=== PATIENT | female | born 1955 | race Caucasian/White ===

== ENCOUNTER 2021-09-28 10:51 | Emergency (ER) | payer MEDICARE, OTHER, SELFPAY ==
--- NOTE | 2021-09-28 10:58 | DI.RAD.S_ITS ---
PROCEDURE: XR CHEST 1V INDICATIONS: chest pain TECHNIQUE: One view of the chest was acquired. COMPARISON: None. FINDINGS: Surgical changes and devices: None. Lungs and pleura: Lungs are clear. No pleural effusions or pneumothorax. Mediastinum: Mediastinal contours appear normal. Heart size is normal. Bones and chest wall: No suspicious bony lesions. Overlying soft tissues appear unremarkable. IMPRESSION: No acute cardiopulmonary abnormalities or focal airspace disease. Dictated by: Se Angeles M.D. on 09/28/2021 at 12:04 Approved by: Se Angeles M.D. on 09/28/2021 at 12:04
[2021-09-28 11:07] VITALS: BP 147/79; PULSE 80; RESP 22; TEMP 36.7; O2SAT 96; BMI 22.2
[2021-09-28 11:22] VITALS: PULSE 77; RESP 18; O2SAT 95
[2021-09-28 11:27] LABS: Add Manual Diff / Slide Review NO; Basophils Absolute Auto 100 /uL (0-100); Basophils Percent Auto 0.7 % (0-2); Eosinophils Absolute Auto 200 /uL (0-450); Eosinophils Percent Auto 2.7 % (2-4); Hematocrit 39.5 % (36-46); Hemoglobin 13.7 g/dL (12.0-16.0); Lymphocytes Absolute Auto 2000 /uL (1100-4500); Lymphocytes Percent Auto 21.9 % (25-40); Mean Corpuscular HGB Conc 34.7 % (30-36); Mean Corpuscular Hemoglobin 31.8 PG (26-34); Mean Corpuscular Volume 91.7 fL (80-100); Monocytes Absolute Auto 900 /uL (0-900); Monocytes Percent Auto 9.8 % (3-14); Neutrophils Absolute Auto 6000 /uL (1500-7000); Neutrophils Percent Auto 64.9 % (50-75); Platelet Count 289 X10^3/uL (150-400); Red Blood Cell Count 4.31 X10^6/uL (4.0-5.2); Red Cell Distribution Width 13.7 % (11.6-14.8); White Blood Cell Count 9.2 X10^3/uL (4.5-11.0)
[2021-09-28 11:30] VITALS: PULSE 80; RESP 18; O2SAT 97
[2021-09-28 11:31] VITALS: BP 103/61; PULSE 80; O2SAT 96
[2021-09-28 11:34] LABS: Alanine Aminotransferase 24 IU/L (<35); Albumin 4.4 g/dL (3.5-5.0); Albumin Globulin Ratio 1.3 (1.0-2.8); Alkaline Phosphatase 95 U/L (38-126); Aspartate Aminotransferase 34 IU/L (14-36); BUN Creatinine Ratio 14.1 (6-22); Bilirubin Total 0.5 mg/dL (0.2-1.3); Blood Urea Nitrogen 11 mg/dL (7-17); Calcium 9.3 mg/dL (8.4-10.2); Carbon Dioxide 27 mmol/L (22-32); Chloride 102 mmol/L (98-107); Creatine Kinase 41 U/L (30-135); Estimated Glomerular Filt Rate > 60 mL/min (>60); Globulin 3.4 g/dL (1.7-4.1); Glucose 101 mg/dL (80-110); HEMOLYSIS < 15 (0-50); Lipase 70 U/L (23-300); Sodium 138 mmol/L (137-145); Total Protein 7.8 g/dL (6.3-8.2)
[2021-09-28 11:46] LABS: Troponin I < 0.012 ng/mL (0.01-0.034)
[2021-09-28 12:00] VITALS: BP 111/66; PULSE 80; RESP 16; O2SAT 97
[2021-09-28 12:02] LABS: D Dimer 265 ng/mL (<230)
[2021-09-28 12:14] LABS: NT-proBNP (BNP-Adult 18+) 34 pg/mL (<125)
[2021-09-28 12:30] VITALS: BP 125/69; PULSE 75; RESP 10; O2SAT 97
--- NOTE | 2021-09-28 12:36 | ED_ITS ---
HPI - Chest Pain <Annalisa Garduno PA-C - Last Filed: 09/28/21 12:45> General Chief Complaint: Chest Pain Stated Complaint: Covid+, shortness of breath, dizzy Time Seen by Provider: 09/28/21 11:51 Mode of arrival: Wheelchair History of Present Illness HPI narrative: 66-year-old female with past medical history lupus, hyperlipidemia presents to the ED with 4 days of upper respiratory symptoms. Patient states she tested positive for COVID 4 days ago at home, following which she has experienced headache, sore throat, cough, nasal congestion, chest tightness, nausea, lightheadedness. Patient describes her chest tightness as she feels a brick sitting on her chest. Patient denies chills, shortness of breath, vomiting, diarrhea, abdominal pain, leg swelling, dizziness, syncope. Patient is vaccinated and boosted for COVID-19. Related Data Previous Rx's Medication Instructions Recorded benzonatate 200 mg capsule 200 mg PO TID PRN cough #30 caps 09/28/21 Allergies Allergy/AdvReac Type Severity Reaction Status Date / Time No Known Drug Allergies Allergy Unverified 09/28/21 11:10 Review of Systems <Annalisa Garduno PA-C - Last Filed: 09/28/21 12:45> Review of Systems ROS Unobtainable: All systems reviewed & are unremarkable except as noted in HPI and below Constitutional Constitutional: Denies chills, Reports fatigue, Reports fever(s), Denies frequent falls, Reports headache(s), Denies lethargy and Denies weakness Eyes Eyes: Denies change in vision, Denies eye discharge, Denies irritation and Denies loss of vision ENT Ears, Nose, Mouth, and Throat: Denies change in voice, Denies dizziness, Reports headache(s), Reports nasal congestion, Denies neck pain, Denies sore throat and Denies throat swelling Cardiovascular Cardiovascular: Denies chest pain, Denies irregular heart rhythm, Reports lightheadedness, Denies palpitations, Denies dyspnea, Denies dyspnea on exertion and Denies orthopnea Comments: Chest tightness Respiratory Respiratory: Reports cough, Denies dyspnea, Denies dyspnea on exertion and Denies wheezing Gastrointestinal Gastrointestinal: Denies abdominal pain, Denies change in bowel habits, Denies diarrhea, Reports nausea and Denies vomiting Genitourinary Genitourinary: Denies hematuria, Denies flank pain, Denies urinary incontinence and Denies urinary urgency Musculoskeletal Musculoskeletal: Denies back pain, Denies muscle weakness, Denies neck pain, Den ies numbness and Denies tingling Integumentary/Breasts Skin/Breast: Denies pruritus, Denies erythema, Denies rash and Denies wounds Neurologic Neurologic: Denies behavioral changes, Denies confusion, Denies dizziness, Denies frequent falls, Reports headache(s), Denies loss of vision, Denies numbness, Denies tingling and Denies weakness Psychiatric Psychiatric: Denies anxiety, Denies behavioral changes, Denies confusion, Denies depression, Denies homicidal ideation and Denies suicidal ideation Endocrine Endocrine: Reports fatigue, Denies flushing and Denies palpitations Hematologic/Lymphatic Hematologic/Lymphatic: Denies easy bruising Allergic/Immunologic Allergic/Immunologic: Denies urticaria, Denies throat swelling and Denies wheezing Patient History <Annalisa Garduno PA-C - Last Filed: 09/28/21 12:45> Social History Smoking Status: Never smoker Smoking Status: Never smoker Substance Use Type: does not use Exam <Annalisa Garduno PA-C - Last Filed: 09/28/21 12:45> Narrative Exam Narrative: Const General:?cooperative, healthy appearing and comfortable [facility] Head:?normal to inspection Ears:?hearing grossly normal bilaterally Nose:?external nose normal Face and sinus:?normal facial exam and sinuses nontender Mouth:?oral mucosae normal Throat:?posterior oropharynx normal Eyes General:?appearance normal, both eyes and all related structures Neck Neck:?normal visual inspection and no lymphadenopathy noted Resp Effort & Inspection:?normal respiratory effort Auscultation:?clear to auscultation bilaterally Cardio Rate:?regular rate Rhythm:?regular rhythm Neuro General:?patient alert, patient awake and patient oriented x3 Initial Vital Signs Initial Vital Signs: Vital Signs Temperature 98.1 F 09/28/21 11:07 Pulse Rate 80 09/28/21 11:07 Respiratory Rate 22 09/28/21 11:07 Blood Pressure 147/79 H 09/28/21 11:07 Pulse Oximetry 96 09/28/21 11:07 Oxygen Delivery Method 09/28/21 11:07 <DO Mikael Jacobsen Last Filed: 09/30/21 09:31> Initial Vital Signs Initial Vital Signs: Vital Signs Temperature 98.1 F 09/28/21 11:07 Pulse Rate 80 09/28/21 11:07 Respiratory Rate 22 09/28/21 11:07 Blood Pressure 147/79 H 09/28/21 11:07 Pulse Oximetry 96 09/28/21 11:07 Oxygen Delivery Method 09/28/21 11:07 Course <Annalisa Garduno PA-C - Last Filed: 09/28/21 12:45> Orders Ordered: ED Orders 09/28/21 10:58 XR chest 1V Stat EKG-12 Lead Stat 09/28/21 11:10 BNP [NT-proBNP (BNP-Adult 18+)] Stat Complete Blood Count AUTO DIFF Stat Comprehensive Metabolic Panel Stat D Dimer Stat Lipase Stat Magnesium Stat Troponin & CK Cardiac Panel Stat Vital Signs Vital signs: Vital Signs - 8 hr 09/28/21 11:07 09/28/21 11:22 09/28/21 11:30 Temperature 98.1 F Pulse Rate 80 77 80 Respiratory Rate 22 18 18 Blood Pressure 147/79 H Pulse Oximetry 96 95 97 Oxygen Delivery Method Room Air 09/28/21 11:31 09/28/21 11:31 09/28/21 12:00 Temperature Pulse Rate 80 80 Respiratory Rate 16 Blood Pressure 103/61 111/66 Pulse Oximetry 96 97 Oxygen Delivery Method Room Air 09/28/21 12:30 09/28/21 12:30 Temperature Pulse Rate 75 Respiratory Rate 10 L Blood Pressure 125/69 Pulse Oximetry 97 Oxygen Delivery Method <Mirtha Connell DO - Last Filed: 09/30/21 09:31> Orders Ordered: ED Orders 09/28/21 10:58 XR chest 1V Stat EKG-12 Lead Stat 09/28/21 11:10 BNP [NT-proBNP (BNP-Adult 18+)] Stat Complete Blood Count AUTO DIFF Stat Comprehensive Metabolic Panel Stat D Dimer Stat Lipase Stat Magnesium Stat Troponin & CK Cardiac Panel Stat Vital Signs Vital signs: Vital Signs - 8 hr 09/28/21 11:07 09/28/21 11:22 09/28/21 11:30 Temperature 98.1 F Pulse Rate 80 77 80 Respiratory Rate 22 18 18 Blood Pressure 147/79 H Pulse Oximetry 96 95 97 Oxygen Delivery Method Room Air 09/28/21 11:31 09/28/21 11:31 09/28/21 12:00 Temperature Pulse Rate 80 80 Respiratory Rate 16 Blood Pressure 103/61 111/66 Pulse Oximetry 96 97 Oxygen Delivery Method Room Air 09/28/21 12:30 09/28/21 12:30 Temperature Pulse Rate 75 Respiratory Rate 10 L Blood Pressure 125/69 Pulse Oximetry 97 Oxygen Delivery Method MDM - Chest Pain <Annalisa Garduno PA-C - Last Filed: 09/28/21 12:45> Medical Records Data Attestation: I reviewed the patient's medical records. Lab Data Attestation: I reviewed the patient's lab results. Lab results narrative: Labs within normal limits. D-dimer below H adjusted D-dimer card of of 335 Result diagrams: 09/28/21 11:10 09/28/21 11:10 Labs: Lab Results 09/28/21 09/28/21 09/28/21 Range/Units 11:10 11:10 11:10 WBC 9.2 (4.5-11.0) X10^3/uL RBC 4.31 (4.0-5.2) X10^6/uL Hgb 13.7 (12.0-16.0) g/dL Hct 39.5 (36-46) % MCV 91.7 (80-100) fL MCH 31.8 (26-34) PG MCHC 34.7 (30-36) % RDW 13.7 (11.6-14.8) % Plt Count 289 (150-400) X10^3/uL Neut % (Auto) 64.9 (50-75) % Lymph % (Auto) 21.9 L (25-40) % [place] % (Auto) 9.8 (3-14) % Eos % (Auto) 2.7 (2-4) % Baso % (Auto) 0.7 (0-2) % Neut # (Auto) 6000 (2580-7444) /uL Lymph # (Auto) 2000 (3195-0076) /uL [place] # (Auto) 900 (0-900) /uL Eos # (Auto) 200 (0-450) /uL Baso # (Auto) 100 (0-100) /uL D-Dimer 265 H (<230) ng/mL Sodium 138 (137-145) mmol/L Potassium 4.0 (3.4-5.1) mmol/L Chloride 102 (98-107) mmol/L Carbon Dioxide 27 (22-32) mmol/L BUN 11 (7-17) mg/dL Creatinine 0.78 (0.52-1.04) mg/dL Estimated GFR > 60 (>60) mL/min BUN/Creatinine Ratio 14.1 (6-22) Glucose 101 (80-110) mg/dL Calcium 9.3 (8.4-10.2) mg/dL Magnesium 2.0 (1.6-2.3) mg/dL Total Bilirubin 0.5 (0.2-1.3) mg/dL AST 34 (14-36) IU/L ALT 24 (<35) IU/L Alkaline Phosphatase 95 (38-126) U/L Total Creatine Kinase 41 (30-135) U/L CK-MB (CK-2) TNP CK-MB (CK-2) Rel Index TNP Troponin I < 0.012 (0.01-0.034) ng/mL NT-Pro-B Natriuret Pep (<125) pg/mL Total Protein 7.8 (6.3-8.2) g/dL Albumin 4.4 (3.5-5.0) g/dL Globulin 3.4 (1.7-4.1) g/dL Albumin/Globulin Ratio 1.3 (1.0-2.8) Lipase 70 (23-300) U/L // Range/Units 11:10 WBC (4.5-11.0) X10^3/uL RBC (4.0-5.2) X10^6/uL Hgb (12.0-16.0) g/dL Hct (36-46) % MCV (80-100) fL MCH (26-34) PG MCHC (30-36) % RDW (11.6-14.8) % Plt Count (150-400) X10^3/uL Neut % (Auto) (50-75) % Lymph % (Auto) (25-40) % [place] % (Auto) (3-14) % Eos % (Auto) (2-4) % Baso % (Auto) (0-2) % Neut # (Auto) (4298-6956) /uL Lymph # (Auto) (4878-4123) /uL [place] # (Auto) (0-900) /uL Eos # (Auto) (0-450) /uL Baso # (Auto) (0-100) /uL D-Dimer (<230) ng/mL Sodium (137-145) mmol/L Potassium (3.4-5.1) mmol/L Chloride (98-107) mmol/L Carbon Dioxide (22-32) mmol/L BUN (7-17) mg/dL Creatinine (0.52-1.04) mg/dL Estimated GFR (>60) mL/min BUN/Creatinine Ratio (6-22) Glucose (80-110) mg/dL Calcium (8.4-10.2) mg/dL Magnesium (1.6-2.3) mg/dL Total Bilirubin (0.2-1.3) mg/dL AST (14-36) IU/L ALT (<35) IU/L Alkaline Phosphatase (38-126) U/L Total Creatine Kinase (30-135) U/L CK-MB (CK-2) CK-MB (CK-2) Rel Index Troponin I (0.01-0.034) ng/mL NT-Pro-B Natriuret Pep 34 (<125) pg/mL Total Protein (6.3-8.2) g/dL Albumin (3.5-5.0) g/dL Globulin (1.7-4.1) g/dL Albumin/Globulin Ratio (1.0-2.8) Lipase (23-300) U/L Imaging Data Chest x-ray: Radiologist's Impression: PROCEDURE:? XR CHEST 1V ? INDICATIONS:? chest pain ? TECHNIQUE:? One view of the chest was acquired.? ? COMPARISON:? None. ? FINDINGS:? ? Surgical changes and devices:? None.? ? Lungs and pleura:? Lungs are clear.? No pleural effusions or pneumothorax.? ? Mediastinum:? Mediastinal contours appear normal.? Heart size is normal.? ? Bones and chest wall:? No suspicious bony lesions.? Overlying soft tissues appear unremarkable.? ? IMPRESSION:? No acute cardiopulmonary abnormalities or focal airspace disease. ? Dictated by: Se Angeles M.D. on 09/28/2021 at 12:04 ? ? Approved by: Se Angeles M.D. on 09/28/2021 at 12:04 ? ECG Data Interpretation: Normal sinus rhythm. No acute ST-T changes. No axis deviation. MDM Narrative Medical decision making narrative: 66-year-old female with past medical history lupus, hyperlipidemia presents to the ED with 4 days of upper respiratory symptoms. Concern for COVID-19 infection versus ACS versus PE versus acute CHF exacerbation versus pneumonia. Will obtain EKG, chest x-ray, labs, troponin, BNP, D-dimer. Unremarkable workup. D-dimer below threshold for age adjusted value of 335. Patient's symptoms likely due to the COVID-19 infection. Discussed support measures with ibuprofen/Tylenol, Sudafed, cough medication. Prescribed Tessalon Perles for cough. Counseled patient on Paxlovid, patient declined the antiviral. ED return precautions discussed with patient. Patient verbalized understanding. <Mirtha Connell, DO - Last Filed: 09/30/21 09:31> Lab Data Labs: Lab Results 09/28/21 09/28/21 09/28/21 Range/Units 11:10 11:10 11:10 WBC 9.2 (4.5-11.0) X10^3/uL RBC 4.31 (4.0-5.2) X10^6/uL Hgb 13.7 (12.0-16.0) g/dL Hct 39.5 (36-46) % MCV 91.7 (80-100) fL MCH 31.8 (26-34) PG MCHC 34.7 (30-36) % RDW 13.7 (11.6-14.8) % Plt Count 289 (150-400) X10^3/uL Neut % (Auto) 64.9 (50-75) % Lymph % (Auto) 21.9 L (25-40) % [place] % (Auto) 9.8 (3-14) % Eos % (Auto) 2.7 (2-4) % Baso % (Auto) 0.7 (0-2) % Neut # (Auto) 6000 (2756-4320) /uL Lymph # (Auto) 2000 (6046-5770) /uL [place] # (Auto) 900 (0-900) /uL Eos # (Auto) 200 (0-450) /uL Baso # (Auto) 100 (0-100) /uL D-Dimer 265 H (<230) ng/mL Sodium 138 (137-145) mmol/L Potassium 4.0 (3.4-5.1) mmol/L Chloride 102 (98-107) mmol/L Carbon Dioxide 27 (22-32) mmol/L BUN 11 (7-17) mg/dL Creatinine 0.78 (0.52-1.04) mg/dL Estimated GFR > 60 (>60) mL/min BUN/Creatinine Ratio 14.1 (6-22) Glucose 101 (80-110) mg/dL Calcium 9.3 (8.4-10.2) mg/dL Magnesium 2.0 (1.6-2.3) mg/dL Total Bilirubin 0.5 (0.2-1.3) mg/dL AST 34 (14-36) IU/L ALT 24 (<35) IU/L Alkaline Phosphatase 95 (38-126) U/L Total Creatine Kinase 41 (30-135) U/L CK-MB (CK-2) TNP CK-MB (CK-2) Rel Index TNP Troponin I < 0.012 (0.01-0.034) ng/mL NT-Pro-B Natriuret Pep (<125) pg/mL Total Protein 7.8 (6.3-8.2) g/dL Albumin 4.4 (3.5-5.0) g/dL Globulin 3.4 (1.7-4.1) g/dL Albumin/Globulin Ratio 1.3 (1.0-2.8) Lipase 70 (23-300) U/L 09/28/21 Range/Units 11:10 WBC (4.5-11.0) X10^3/uL RBC (4.0-5.2) X10^6/uL Hgb (12.0-16.0) g/dL Hct (36-46) % MCV (80-100) fL MCH (26-34) PG MCHC (30-36) % RDW (11.6-14.8) % Plt Count (150-400) X10^3/uL Neut % (Auto) (50-75) % Lymph % (Auto) (25-40) % [place] % (Auto) (3-14) % Eos % (Auto) (2-4) % Baso % (Auto) (0-2) % Neut # (Auto) (5060-8581) /uL Lymph # (Auto) (5580-2634) /uL [place] # (Auto) (0-900) /uL Eos # (Auto) (0-450) /uL Baso # (Auto) (0-100) /uL D-Dimer (<230) ng/mL Sodium (137-145) mmol/L Potassium (3.4-5.1) mmol/L Chloride (98-107) mmol/L Carbon Dioxide (22-32) mmol/L BUN (7-17) mg/dL Creatinine (0.52-1.04) mg/dL Estimated GFR (>60) mL/min BUN/Creatinine Ratio (6-22) Glucose (80-110) mg/dL Calcium (8.4-10.2) mg/dL Magnesium (1.6-2.3) mg/dL Total Bilirubin (0.2-1.3) mg/dL AST (14-36) IU/L ALT (<35) IU/L Alkaline Phosphatase (38-126) U/L Total Creatine Kinase (30-135) U/L CK-MB (CK-2) CK-MB (CK-2) Rel Index Troponin I (0.01-0.034) ng/mL NT-Pro-B Natriuret Pep 34 (<125) pg/mL Total Protein (6.3-8.2) g/dL Albumin (3.5-5.0) g/dL Globulin (1.7-4.1) g/dL Albumin/Globulin Ratio (1.0-2.8) Lipase (23-300) U/L ECG Data Interpretation: Normal sinus rhythm. No acute ST-T changes. No axis deviation. BOTNICK-sinus rhythm rate 77 VT 146 QRS 82 QTC 416 no changes Q-wave nonpathologic noted in lead 3 and 2 no priors to compare Discharge Plan Departure Patient Disposition: Home Clinical Impression: COVID-19 Instructions: DI for COVID-19 (Suspected or Confirmed ) Activity Restrictions/Additional Instructions: You were evaluated in the ED today for upper respiratory symptoms, chest tightness, recent COVID 19 positive test at home. Your chest x-ray, EKG, labs were normal. The symptoms you are experiencing are consistent with a COVID-19 infection, and can last for several days while it runs its course. You have been prescribed Tessalon Perles for your cough. You may take ibuprofen/Tylenol for aches and pains. You may take Sudafed for nasal congestion. Return to the ED if you experience shortness of breath, chest pain. Prescriptions: New benzonatate 200 mg capsule 200 mg PO TID PRN (Reason: cough) Qty: 30 0RF Visit Report Forms: Patient Portal/API <Mirtha Connell DO - Last Filed: 09/30/21 09:31> Cosign ED Attending Cosyog[place]ure Attestation: I was immediately available in the department for consultation. Documentation has been reviewed. I agree with assessment and plan.
== END 2021-09-28 12:42 | disposition home or self-care (01) ==
PROVIDERS: Emergency Medicine; Emergency Provider Student in an Organized Health Care Education/Training Program
DX: U07.1 COVID-19 (principal)
CPT/HCPCS: 36415; 71045; 80053; 82550; 83690; 83735; 83880; 84484; 85025; 85379; 93005; 99283; 99284

== ENCOUNTER → 2021-12-11 10:06 | Outpatient (CLI) | payer MEDICARE, OTHER, SELFPAY ==
[2021-12-11 12:57] LABS: Add Manual Diff / Slide Review NO; Basophils Absolute Auto 100 /uL (0-100); Basophils Percent Auto 0.8 % (0-2); Eosinophils Absolute Auto 200 /uL (0-450); Eosinophils Percent Auto 3.8 % (2-4); Hematocrit 39.4 % (36-46); Hemoglobin 13.2 g/dL (12.0-16.0); Lymphocytes Absolute Auto 1900 /uL (1100-4500); Lymphocytes Percent Auto 29.6 % (25-40); Mean Corpuscular HGB Conc 33.5 % (30-36); Mean Corpuscular Hemoglobin 30.8 PG (26-34); Mean Corpuscular Volume 92.1 fL (80-100); Monocytes Absolute Auto 500 /uL (0-900); Monocytes Percent Auto 7.5 % (3-14); Neutrophils Absolute Auto 3700 /uL (1500-7000); Neutrophils Percent Auto 58.3 % (50-75); Platelet Count 373 X10^3/uL (150-400); Red Blood Cell Count 4.28 X10^6/uL (4.0-5.2); Red Cell Distribution Width 13.7 % (11.6-14.8); White Blood Cell Count 6.4 X10^3/uL (4.5-11.0)
[2021-12-11 14:53] LABS: BUN Creatinine Ratio 20.5 (6-22); Blood Urea Nitrogen 18 mg/dL (7-17); Calcium 9.4 mg/dL (8.4-10.2); Carbon Dioxide 32 mmol/L (22-32); Chloride 99 mmol/L (98-107); Cholesterol 189 mg/dL (140-199); Estimated Glomerular Filt Rate > 60 mL/min (>60); Glucose 93 mg/dL (80-110); HDL Cholesterol 76 mg/dL (40-60); HEMOLYSIS < 15 (0-50); LDL Cholesterol Calculated 97 mg/dL (<100); Potassium 4.2 mmol/L (3.4-5.1); Sodium 139 mmol/L (137-145); Triglycerides 81 mg/dL (35-150)
[2021-12-11 15:02] LABS: Vitamin D 25 Hydroxy (D3) 69.5 ng/mL (30.0-100.0)
[2021-12-11 15:06] LABS: Free T3, Triiodothyronine Free 3.05 pg/mL (2.77-5.27)
[2021-12-11 15:20] LABS: Thyroid Stimulating Hormone 2.18 uIU/mL (0.47-4.68)
[2021-12-11 15:39] LABS: Vitamin B12 484 pg/mL (239-931)
[2021-12-15 08:02] LABS: Methylmalonic Acid,Serum 188 nmol/L (0-378)
== END ==
PROVIDERS: PCP Family Medicine; Referring Provider Family Medicine; Visit Provider Family Medicine
DX: D64.9 Anemia, unspecified (principal); E03.9 Hypothyroidism, unspecified; M79.10 Myalgia, unspecified site
CPT/HCPCS: 36415; 80048; 80061; 82306; 82607; 83921; 84439; 84443; 84481; 85025

== ENCOUNTER → 2022-05-18 11:52 | Outpatient (CLI) | payer MEDICARE, OTHER, SELFPAY ==
--- NOTE | 2022-05-18 11:09 | DI.DEXA.S_ITS ---
Indication: postmenopausal; screening for osteoporosis; Referring Provider: DONY PEREZ Study: Bone densitometry was performed. Exam Date: May 18, 2022 Accession number: [id number] Bone Density: Region BMD T-score Z-score Classification AP Spine(L1-L4) 0.922 -1.1 0.8 Osteopenia Femoral Neck (Left) 0.575 -2.5 -0.8 Osteoporosis Total Hip (Left) 0.713 -1.9 -0.5 Osteopenia Femoral Neck (Right) 0.587 -2.4 -0.7 Osteopenia Total Hip (Right) 0.725 -1.8 -0.4 Osteopenia Total Hip Mean 0.719 -1.9 -0.5 Osteopenia World Health Organization criteria for BMD impression classify patients as: Normal (T-score at or above -1.0), Osteopenia (T-score between -1.0 and -2.5), or Osteoporosis (T-score at or below -2.5). 10-year Fracture Risk: FRAX not reported because: Some T-score for Spine Total or Hip Total or Femoral Neck at or below -2.5 Impression: The patient has osteoporosis, based on the Left Femoral Neck T-score. Discussion: INCREASED RISK OF FRACTURE. BONE DENSITY IS UNDESIRABLY LOW AT ONE OR MORE SKELETAL SITES, CONSISTENT WITH POSTMENOPAUSAL OSTEOPOROSIS. This patient's lowest T-score meets the World Health Organization's (WHO) criteria for osteoporosis at one or more sites (T-score -2.5 or below). In untreated patients, the risk of osteoporotic fracture increases approximately two-fold for each 1.0 SD decrease in T-score. Low bone density is not the only risk factor for fracture; also consider factors such as patient's age, frailty or poor health, risk of falling, risk of injury, previous osteoporotic fracture, family history of osteoporosis, cigarette smoking, low body weight, etc. Not everyone with low bone mineral density has osteoporosis; osteomalacia and other metabolic bone disorders should also be considered. Patients who have osteoporosis should be evaluated for specific diseases and conditions (secondary causes) that may cause or contribute to bone loss. The [place] [employer]ocr[employer] (AACE) and National Osteoporosis Foundation (NOF) recommend pharmacologic intervention for all postmenopausal women whose T-score is in this range. The patient should follow a healthful lifestyle (good nutrition with adequate calcium and vitamin D, and appropriate weight-bearing exercise). Follow-Up: Consider a repeat BMD and Vertebral Fracture Assessment (VFA) exam in 2 years or sooner if medically necessary, to reassess this patient's status. Reported by: RONALD^SHARLA^NAVEEN on 05/18/2022 11:21:00 AM.
== END ==
PROVIDERS: PCP Family Medicine; Referring Provider Nurse Practitioner; Visit Provider Nurse Practitioner
DX: M81.0 Age-related osteoporosis without current pathological fracture (principal); Z13.820 Encounter for screening for osteoporosis; Z78.0 Asymptomatic menopausal state
CPT/HCPCS: 77080

== ENCOUNTER → 2022-07-13 12:41 | Outpatient (CLI) | payer MEDICARE, OTHER, SELFPAY ==
--- NOTE | 2022-07-13 | DI.US.S_ITS ---
PROCEDURE: US PELVIC COMPLETE INDICATIONS: PMB TECHNIQUE: Real-time scanning was performed of the pelvic organs, with image documentation. Additional endovaginal scanning was necessary due to incomplete visualization of the adnexal and endometrial structures by transabdominal scanning. COMPARISON: None. FINDINGS: Uterus: Uterus is anteverted and normal in size at 7.3 x 3.7 x 4.0 cm. The endometrium is ill-defined and may measure 2 mm versus 19 mm. Ovaries: The right ovary is not visualized likely due to bowel gas and/or senescent change. The left ovary measures 2.0 x 2.0 x 1.0 cm, with a calculated ovarian volume of 2 cc. No adnexal masses are seen. Other: No pathologic free abdominal or pelvic fluid. IMPRESSION: 1. The endometrium is ill-defined and difficult to measure. It is unclear if the endometrium is thin measuring 2 mm or abnormally thickened measuring up to 19 mm. Could consider short interval follow-up ultrasound and/or tissue sampling for further evaluation, MRI could also be obtained if clinically indicated. 2. No adnexal mass visualized. We strive to produce accurate, complete, and clear reports of imaging services. To assist us in improving patient care, this report was composed using standard report templates and voice recognition software. Therefore, it may contain abnormal punctuation, insertions and/or omissions. Occasional wrong-word or sound-alike substitutions may occur. Though we review the report and make efforts to correct it, we do recommend that the report be read carefully in proper context to recognize any text inaccuracies. Dictated by: David Nolasco M.D. on 07/13/2022 at 16:42 Approved by: David Nolasco M.D. on 07/13/2022 at 16:45
== END ==
PROVIDERS: PCP Family Medicine; Referring Provider Nurse Practitioner; Visit Provider Nurse Practitioner
DX: N95.0 Postmenopausal bleeding (principal)
CPT/HCPCS: 76830; 76856

== ENCOUNTER 2022-08-21 23:57 | Observation (INO) | payer MEDICARE, OTHER, SELFPAY ==
[2022-08-22] VITALS (10 sets, daily range): BP systolic 119–138; BP diastolic 62–79; PULSE 58–76; RESP 16–20; TEMP 36.2–36.4; O2SAT 96–99; BMI 23.8
--- NOTE | 2022-08-22 00:05 | DI.RAD.S_ITS ---
PROCEDURE: XR CHEST 1V INDICATIONS: chest pain TECHNIQUE: One view of the chest was acquired. COMPARISON: [facility], CR, XR CHEST 1V, 09/28/2021, 11:15. FINDINGS: Surgical changes and devices: None. Lungs and pleura: Lungs are clear. No pleural effusions or pneumothorax. Mediastinum: Mediastinal contours appear normal. Heart size is normal. Bones and chest wall: No suspicious bony lesions. Overlying soft tissues appear unremarkable. IMPRESSION: Normal for age, source of current chest pain symptoms is not seen. Dictated by: Teo Franco M.D. on 08/22/2022 at 0:41 Approved by: Teo Franco M.D. on 08/22/2022 at 0:42
[2022-08-22 00:25] LABS: Add Manual Diff / Slide Review NO; Basophils Absolute Auto 0 /uL (0-100); Basophils Percent Auto 0.5 % (0-2); Eosinophils Absolute Auto 200 /uL (0-450); Eosinophils Percent Auto 1.9 % (2-4); Hematocrit 37.9 % (36-46); Lymphocytes Absolute Auto 3000 /uL (1100-4500); Mean Corpuscular HGB Conc 34.3 % (30-36); Mean Corpuscular Hemoglobin 31.6 PG (26-34); Mean Corpuscular Volume 92.2 fL (80-100); Monocytes Absolute Auto 700 /uL (0-900); Monocytes Percent Auto 7.7 % (3-14); Neutrophils Absolute Auto 5500 /uL (1500-7000); Neutrophils Percent Auto 57.9 % (50-75); Platelet Count 348 X10^3/uL (150-400); Red Blood Cell Count 4.11 X10^6/uL (4.0-5.2); Red Cell Distribution Width 12.9 % (11.6-14.8); White Blood Cell Count 9.4 X10^3/uL (4.5-11.0)
[2022-08-22 00:34] LABS: Alanine Aminotransferase 21 IU/L (<35); Albumin 4.1 g/dL (3.5-5.0); Albumin Globulin Ratio 1.2 (1.0-2.8); Alkaline Phosphatase 81 U/L (38-126); Aspartate Aminotransferase 27 IU/L (14-36); BUN Creatinine Ratio 20.9 (6-22); Bilirubin Total 0.3 mg/dL (0.2-1.3); Blood Urea Nitrogen 18 mg/dL (7-17); Calcium 9.9 mg/dL (8.4-10.2); Carbon Dioxide 31 mmol/L (22-32); Chloride 102 mmol/L (98-107); Creatine Kinase 68 U/L (30-135); Estimated Glomerular Filt Rate > 60 mL/min (>60); Globulin 3.3 g/dL (1.7-4.1); Glucose 102 mg/dL (80-110); HEMOLYSIS < 15 (0-50); Lipase 120 U/L (23-300); Magnesium 2.1 mg/dL (1.6-2.3); Potassium 3.9 mmol/L (3.4-5.1); Sodium 137 mmol/L (137-145); Total Protein 7.4 g/dL (6.3-8.2)
[2022-08-22 00:41] LABS: PTT Partial Thromboplastin Tim 32 SECONDS (26-36)
[2022-08-22 00:46] LABS: Troponin I < 0.012 ng/mL (0.01-0.034)
--- NOTE | 2022-08-22 02:53 | ED_ITS ---
HPI - General Adult General Chief complaint: Dizziness Stated complaint: dizzy cannot stand/30 min Time Seen by Provider: 08/22/22 02:40 Source: family Mode of arrival: Wheelchair History of Present Illness HPI narrative: 67-year-old woman with a history of hypothyroidism, depression, postmenopausal history of lupus with no active symptoms at this point had an episode today where she was sitting on the floor and while she was on the floor became acutely dizzy to the point that she was unable to get off the floor could not speak with significant word-finding difficulties and dramatic dizziness that she describes as very distinct from prior episodes of vertigo. Her helped her off the floor and helped her to bed. Symptoms continued while she was in bed. Symptoms started at approximately 7:00 p.m. They have continued for about 4 hours and she states that she is now feeling better however when pressed and with movement she still is having some mild dizziness. The dizziness does not necessarily seem to be positional and is not orthostatic. Prior to episodes today she had been feeling like she was in her usual state of excellent health with no complaints. No fevers, cough, chills, chest pain, palpitations, headaches, visual changes or any other concerning findings Related Data Previous Rx's Medication Instructions Recorded atorvastatin 20 mg tablet 20 mg PO DAILY #90 tabs 02/10/22 duloxetine 30 mg capsule,delayed 30 mg PO DAILY #7 caps 08/04/22 release levothyroxine 75 mcg tablet 75 mcg PO DAILY #7 tabs 08/04/22 Allergies Allergy/AdvReac Type Severity Reaction Status Date / Time No Known Drug Allergies Allergy Verified 08/22/22 00:01 Review of Systems Review of Systems Narrative: Pertinent positive and negative findings as per HPI Patient History Medical History Fibromyalgia Hypothyroidism Lupus (systemic lupus erythematosus) TIA (transient ischemic attack) Social History household members: spouse Smoking Status: Never smoker alcohol intake: current substance use type: does not use Smoking Status: Never smoker Substance Use Type: does not use Exam Initial Vital Signs Initial Vital Signs: Vital Signs Temperature 97.2 F L 08/22/22 00:01 Pulse Rate 68 08/22/22 00:01 Respiratory Rate 16 08/22/22 00:01 Blood Pressure 138/70 08/22/22 00:01 Pulse Oximetry 99 08/22/22 00:01 Oxygen Delivery Method Room Air 08/22/22 00:01 General: Healthy appearing, in no acute distress. Able to give a complete and coherent history. Well-nourished well-developed HEENT: Moist mucous membranes, normal sclera with reactive pupils, Neck: No JVD, supple Respiratory: Lungs are clear to auscultation, no wheezing no rales no rhonchi. Full and symmetrical air movement Cardiac: Regular rate and rhythm no murmurs no bruits Abdomen: Soft, nontender, good bowel tones, no flank pain Skin: Warm and dry, no rashes Neurologic: No gross motor abnormalities or weakness, no speech abnormalities. Slight decreased sensation in the left side of the face and the left upper extremity. Extremities: No trauma, well perfused Psych: Cooperative, appropriate insight and affect NIH Stroke Scale/Score (NIHSS) on 08/22/2022 RESULT SUMMARY: 1 points NIH Stroke Scale INPUTS: 1A: Level of consciousness ?> 0 = Alert; keenly responsive 1B: Ask month and age ?> 0 = Both questions right 1C: 'Blink eyes' & 'squeeze hands' ?> 0 = Performs both tasks 2: Horizontal extraocular movements ?> 0 = Normal 3: Visual pugh ?> 0 = No visual loss 4: Facial palsy ?> 0 = Normal symmetry 5A: Left arm motor drift ?> 0 = No drift for 10 seconds 5B: Right arm motor drift ?> 0 = No drift for 10 seconds 6A: Left leg motor drift ?> 0 = No drift for 5 seconds 6B: Right leg motor drift ?> 0 = No drift for 5 seconds 7: Limb Ataxia ?> 0 = No ataxia 8: Sensation ?> 1 = Mild-moderate loss: less sharp/more dull 9: Language/aphasia ?> 0 = Normal; no aphasia 10: Dysarthria ?> 0 = Normal 11: Extinction/inattention ?> 0 = No abnormality Course Orders Ordered: ED Orders 08/22/22 00:05 XR chest 1V Stat EKG-12 Lead Stat 08/22/22 00:10 Complete Blood Count AUTO DIFF Stat Comprehensive Metabolic Panel Stat Lipase Stat Magnesium Stat PTT Partial Thromboplastin Jason Stat Prothrombin Time INR Stat Troponin & CK Cardiac Panel Stat 08/22/22 03:20 CT angio head and neck Stat Acetaminophen (Acetaminophen 325 Mg Tablet) 650 mg PO Q6H PRN PRN Reason: Fever/Mild Pain (1-3) Al Hydrox/Mg Hydrox/Simethicone (Mag Hydrox/Alum/Simeth 30 Ml Udc) 30 ml PO Q6HR PRN PRN Reason: Dyspepsia Aspirin (Aspirin Ec 325 Mg Tablet) 325 mg PO DAILY [facility] Atorvastatin Calcium (Atorvastatin 20 Mg Tablet) 20 mg PO BEDTIME [facility] Calcium Carbonate (Calcium Carbonate 500 Mg Tab) 1,000 mg PO Q4HR PRN PRN Reason: Dyspepsia Clopidogrel Bisulfate (Clopidogrel 75 Mg Tablet) 75 mg PO DAILY [facility] Duloxetine HCl (Duloxetine 30 Mg Capsule) 30 mg PO DAILY [facility] Enoxaparin Sodium (Enoxaparin 40 Mg/0.4 Ml Syringe) 40 mg SUBCUT DAILY [facility] Levothyroxine Sodium (Levothyroxine 75 Mcg Tablet) 75 mcg PO QACBREAK [facility] Last Admin: 08/22/22 06:30 Dose: 75 mcg Documented By: Naloxone HCl (Naloxone 0.4 Mg/Ml Vial) 0.2 mg IV Q2MIN PRN PRN Reason: Opiate Reversal Discontinued Medications Aspirin (Aspirin 81 Mg Chew Tab) 324 mg PO NOW ONE Stop: 08/22/22 00:06 Last Admin: 08/22/22 02:17 Dose: Not Given Documented By: LARRY Vital Signs Vital signs: Vital Signs - 8 hr 08/22/22 00:01 08/22/22 01:54 08/22/22 02:00 Temperature 97.2 F L Pulse Rate 68 72 66 Respiratory Rate 16 18 16 Blood Pressure 138/70 128/62 128/62 Pulse Oximetry 99 97 96 Oxygen Delivery Method Room Air Room Air Room Air 08/22/22 03:10 08/22/22 04:00 Temperature Pulse Rate 70 76 Respiratory Rate 17 17 Blood Pressure Pulse Oximetry 97 97 Oxygen Delivery Method Room Air Room Air Medical Decision Making Lab Data 08/22/22 00:10 08/22/22 00:10 Labs: Lab Results 08/22/22 08/22/22 08/22/22 Range/Units 00:10 00:10 00:10 WBC 9.4 (4.5-11.0) X10^3/uL RBC 4.11 (4.0-5.2) X10^6/uL Hgb 13.0 (12.0-16.0) g/dL Hct 37.9 (36-46) % MCV 92.2 (80-100) fL MCH 31.6 (26-34) PG MCHC 34.3 (30-36) % RDW 12.9 (11.6-14.8) % Plt Count 348 (150-400) X10^3/uL Neut % (Auto) 57.9 (50-75) % Lymph % (Auto) 32.0 (25-40) % [place] % (Auto) 7.7 (3-14) % Eos % (Auto) 1.9 L (2-4) % Baso % (Auto) 0.5 (0-2) % Neut # (Auto) 5500 (1088-0616) /uL Lymph # (Auto) 3000 (0027-2017) /uL [place] # (Auto) 700 (0-900) /uL Eos # (Auto) 200 (0-450) /uL Baso # (Auto) 0 (0-100) /uL PT 12.0 (10.1-12.7) SECONDS INR 1.0 (0.9-1.3) APTT 32 (26-36) SECONDS Sodium 137 (137-145) mmol/L Potassium 3.9 (3.4-5.1) mmol/L Chloride 102 (98-107) mmol/L Carbon Dioxide 31 (22-32) mmol/L BUN 18 H (7-17) mg/dL Creatinine 0.86 (0.52-1.04) mg/dL Estimated GFR > 60 (>60) mL/min BUN/Creatinine Ratio 20.9 (6-22) Glucose 102 (80-110) mg/dL Calcium 9.9 (8.4-10.2) mg/dL Magnesium 2.1 (1.6-2.3) mg/dL Total Bilirubin 0.3 (0.2-1.3) mg/dL AST 27 (14-36) IU/L ALT 21 (<35) IU/L Alkaline Phosphatase 81 (38-126) U/L Total Creatine Kinase 68 (30-135) U/L CK-MB (CK-2) TNP CK-MB (CK-2) Rel Index TNP Troponin I < 0.012 (0.01-0.034) ng/mL NT-Pro-B Natriuret Pep (<125) pg/mL Total Protein 7.4 (6.3-8.2) g/dL Albumin 4.1 (3.5-5.0) g/dL Globulin 3.3 (1.7-4.1) g/dL Albumin/Globulin Ratio 1.2 (1.0-2.8) Lipase 120 (23-300) U/L TSH (0.47-4.68) uIU/mL 08/22/22 08/22/22 Range/Units 00:10 00:10 WBC (4.5-11.0) X10^3/uL RBC (4.0-5.2) X10^6/uL Hgb (12.0-16.0) g/dL Hct (36-46) % MCV (80-100) fL MCH (26-34) PG MCHC (30-36) % RDW (11.6-14.8) % Plt Count (150-400) X10^3/uL Neut % (Auto) (50-75) % Lymph % (Auto) (25-40) % [place] % (Auto) (3-14) % Eos % (Auto) (2-4) % Baso % (Auto) (0-2) % Neut # (Auto) (1731-4015) /uL Lymph # (Auto) (7255-8346) /uL [place] # (Auto) (0-900) /uL Eos # (Auto) (0-450) /uL Baso # (Auto) (0-100) /uL PT (10.1-12.7) SECONDS INR (0.9-1.3) APTT (26-36) SECONDS Sodium (137-145) mmol/L Potassium (3.4-5.1) mmol/L Chloride (98-107) mmol/L Carbon Dioxide (22-32) mmol/L BUN (7-17) mg/dL Creatinine (0.52-1.04) mg/dL Estimated GFR (>60) mL/min BUN/Creatinine Ratio (6-22) Glucose (80-110) mg/dL Calcium (8.4-10.2) mg/dL Magnesium (1.6-2.3) mg/dL Total Bilirubin (0.2-1.3) mg/dL AST (14-36) IU/L ALT (<35) IU/L Alkaline Phosphatase (38-126) U/L Total Creatine Kinase (30-135) U/L CK-MB (CK-2) CK-MB (CK-2) Rel Index Troponin I (0.01-0.034) ng/mL NT-Pro-B Natriuret Pep 31 (<125) pg/mL Total Protein (6.3-8.2) g/dL Albumin (3.5-5.0) g/dL Globulin (1.7-4.1) g/dL Albumin/Globulin Ratio (1.0-2.8) Lipase (23-300) U/L TSH 2.04 (0.47-4.68) uIU/mL MDM Narrative Medical decision making narrative: CC: Acute dizziness, weakness, word-finding difficulty/dysphagia now mostly resolved his acute problem uncertain diagnosis Complicating co-morbidities: Hyperlipidemia hypothyroidism Data collected from: patient, Medical records reviewed: New patient visit with Bev blakely from December 11, 2021 is reviewed Differential considered: TIA, stroke, benign positional vertigo Exam documented above, pertinent findings include: No positional nystagmus or vertigo. Slight decreased sensation left side of the face and left forearm. Lab Test results independently reviewed as above. Pertinent findings: CBC is unremarkable Metabolic panel is unremarkable Troponin is undetectable Lipase is within normal limits Imaging studies independently reviewed: CT angio head and neck finds no occlusion or hemodynamically significant stenosis and CT of the brain was unremarkable. Discussion: 67-year-old woman with presentation consistent with TIA. CTA is unremarkable. I believe brain MR is indicated. She is had multiple MRIs in the past and does not have any difficulty with them or contraindications for them. At this point she continues to have some mild left facial and left upper extremity paresthesia. Possibility of stroke was considered, tPA was considered however there is no known time of onset, NIH score is 1 and diagnosis of stroke is not obvious. TPA is not indicated today. Discharge Plan Departure Patient Disposition: Admitted as Observation Clinical Impression: Brain TIA, Dizziness Admit Date/Time: 08/22/22 04:53 Admit Provider: Sridevi Benavides
--- NOTE | 2022-08-22 03:20 | DI.CT.S_ITS ---
PROCEDURE: CT ANGIO HEAD AND NECK INDICATIONS: TIA vs stroke TECHNIQUE: Pre-contrast 4.5 mm thick sections acquired from the foramen magnum to the vertex. After the administration of intravenous contrast, 1 mm thick sections acquired from the aortic arch through the [place] of [place]. Post-contrast 4.5 mm thick sections then re-acquired from the foramen magnum to the vertex. MIP reformats of the arterial vasculature were utilized. For radiation dose reduction, the following was used: automated exposure control, adjustment of mA and/or kV according to patient size. COMPARISON: None. FINDINGS: Image quality: Excellent. BRAIN: CSF spaces: Ventricles are normal in size and shape. Basal cisterns are patent. No extra-axial fluid collections. Brain: No midline shift. No intracranial bleeds or masses. Gonzalez-white matter interface appears intact. Skull and face: Calvarium and facial bones appear intact, without suspicious lesions. Orbits appear normal. Sinuses: Sinuses and mastoids are clear. HEAD CT ANGIOGRAPHY: Anterior circulation: Intracranial internal carotid arteries are normal in size and flow. The flow within the paired anterior cerebral arteries is normal and symmetric. The flow within the middle cerebral arteries is normal and symmetric. The anterior communicating artery is seen. No aneurysms are seen. Posterior circulation: Visualized portions of the vertebral arteries demonstrate normal caliber, and join to form a normal appearing basilar artery. Flow within the posterior cerebral arteries is normal and symmetric. No aneurysms are seen. NECK CT ANGIOGRAPHY: Carotid system: The great vessels demonstrate a conventional anatomy as they arise from the aortic arch. The origins of the common carotid arteries appear patent. The common carotid arteries demonstrate normal caliber and courses. The bifurcation regions are both widely patent. The internal carotid arteries demonstrate normal calibers and courses. Posterior circulation: The origins of the vertebral arteries both appear widely patent. The more superior extracranial portions of both vertebral arteries also demonstrate normal courses and calibers. They join to form a normal appearing basilar artery. Soft tissues: Visualized neck soft tissues demonstrate no suspicious abnormalities. Bones: Degenerative disc disease and arthropathy in the mid cervical spine IMPRESSION: Unremarkable CT brain without intracranial hemorrhage or mass effect. Normal CT angiogram without large vessel occlusion, aneurysm or vascular malformation. Any quantitative measurements of stenosis were performed using NASCET criteria. Note: Final report is concordant with preliminary interpretation by [employer] Approved by: Luis Armando Palmer M.D. on 08/22/2022 at 9:57
--- NOTE | 2022-08-22 04:57 | DI.MRI.S_ITS ---
PROCEDURE: MR HEAD/BRAIN WO CON INDICATIONS: TIA TECHNIQUE: Noncontrast axial T1 spin echo, axial T2 fast spin echo, sagittal and axial FLAIR, coronal T2 fast spin echo, axial gradient echo, axial diffusion and ADC through the brain. COMPARISON: None. FINDINGS: Image quality: Excellent. CSF Spaces: Basal cisterns are patent. No extra-axial fluid collections. Ventricles are normal in size and shape. Brain: No intracranial masses or hemorrhage. Gonzalez/white matter interface is normal. Brainstem appears normal. Diffusion-weighted sequence is unremarkable without evidence of acute infarct. Normal intravascular flow voids are present. Skull and face: Calvarium has normal marrow signal. Orbits appear normal. Sinuses: Sinuses and mastoids are clear. IMPRESSION: Unremarkable MRI of the brain. No evidence of acute infarct, hemorrhage or mass lesion Approved by: Luis Armando Palmer M.D. on 08/22/2022 at 8:21
--- NOTE | 2022-08-22 05:08 | P.HP_ITS ---
History of Present Illness History of Present Illness Date Patient Seen: 08/22/22 Time Patient Seen: 05:08 Chief complaint: TIA Narrative: Kenyetta King is a 67-year-old female with a past medical history of TIA, HLD, hypothyroidism, lupus, depression who presented to the ED after suffering an episode that onset approximately 7:00 p.m. while the patient was sitting on the floor she suddenly found she was unable to speak, and felt the room spinning and was unable to stand symptoms persisted for approximately 2 hours upon resolution her spouse brought her into the ED. on exam Dr. Walls found that the patient had decreased sensation to left side of face, and left forearm NIH score: 1. Head CT and CTA were negative. On admit patient reports that she developed a headache approximately 10:00 p.m. last night it continues and worsens with any movement of head or eyes [id number] in addition mild ways of nausea and vertigo. Denies chest pain, shortness in breath, changes in vision, difficulty swallowing, numbness, tingling, difficulty with ambulation, recent falls, head injury, LOC, fever, body aches, chills, cough, recent exposure to illness, abdominal pain, nausea, vomiting, urinary incontinence/retention, dysuria, frequency, urgency, hematuria, bowel changes, constipation, incontinence, melena, rashes, recent changes to medication, illness, injury, or trauma. Patient's vital signs are stable temp 97.2?, 128/62, 71, 17, 97% on room air. Patient's CBC, chemistry, PT INR, liver panel, troponin are all unremarkable. NIH score: 1. Patient admitted for TIA risk stratification. [facility] Medical History Fibromyalgia Hypothyroidism Lupus (systemic lupus erythematosus) TIA (transient ischemic attack) Family History Mother No problems noted. Father No problems noted. Social History household members: spouse Smoking Status: Never smoker alcohol intake: current substance use type: does not use Meds Home Medications and Allergies Home Medications Medication Instructions Recorded Confirmed Type atorvastatin 20 mg tablet 20 mg PO DAILY #90 tabs 02/10/22 Rx duloxetine 30 mg capsule,delayed 30 mg PO DAILY #7 caps 08/04/22 Rx release levothyroxine 75 mcg tablet 75 mcg PO DAILY #7 tabs 08/04/22 Rx Allergies Allergy/AdvReac Type Severity Reaction Status Date / Time No Known Drug Allergies Allergy Verified 08/22/22 00:01 Review of Systems Review of Systems Narrative: All 12 point systems reviewed with the patient and are negative except otherwise documented. Exam Vital Signs (past 8 hours): - 08/22/22 00:01 08/22/22 01:54 Temperature 97.2 F L Pulse Rate 68 72 Respiratory Rate 16 18 Blood Pressure 138/70 128/62 Pulse Oximetry 99 97 Oxygen Delivery Method Room Air Room Air Oxygen Delivery Method Room Air Narrative Exam Narrative: General: Patient is a well-developed, well-nourished in no distress at this time. HEENT: Normocephalic, atraumatic, extraocular muscles intact, oral pharynx is clear and mucous membranes are moist. Neck is supple and symmetric, trachea is midline, no adenopathy, no thyroid enlargement, nontender, no masses palpated. Negative for JVD Chest: Normal AP diameter and contour without kyphoscoliosis, Equal chest rise without nasal flaring, retractions, tachypneic or labored breathing. Lungs: Auscultation of all lung pugh are clear without adventitious sounds, wheezes, rhonchi, or rales. Cardio: regular rate and rhythm without murmur, rubs, or gallops, no carotid bruit, no cardiac pulsations present. Abdomen: Soft nontender, negative for organomegaly, or masses. Bowel sounds are present in all 4 quadrants without guarding or rebound, no CVA tenderness. Musculoskeletal: Muscle strength and tone are equal, no deformity, crepitus, effusions, cyanosis, clubbing or edema present. Full range of motion intact radial and pedal pulses are normal. Skin: Warm dry and intact without rashes, ulcerations or petechiae. Neuro: Alert and orientated x3, moves all extremities, sensation to touch intact, no gross deficits noted of cranial nerves. NIH: 1 Psych: Patient has a well-kept appearance, appropriate affect, mental status attitude thought context and judgment are appropriate for age. Objective Labs 08/22/22 00:10 08/22/22 00:10 Labs: Laboratory Results - last 24 hr 08/22/22 08/22/22 08/22/22 00:10 00:10 00:10 WBC 9.4 RBC 4.11 Hgb 13.0 Hct 37.9 MCV 92.2 MCH 31.6 MCHC 34.3 RDW 12.9 Plt Count 348 Neut % (Auto) 57.9 Lymph % (Auto) 32.0 [place] % (Auto) 7.7 Eos % (Auto) 1.9 L Baso % (Auto) 0.5 Neut # (Auto) 5500 Lymph # (Auto) 3000 [place] # (Auto) 700 Eos # (Auto) 200 Baso # (Auto) 0 PT 12.0 INR 1.0 APTT 32 Sodium 137 Potassium 3.9 Chloride 102 Carbon Dioxide 31 BUN 18 H Creatinine 0.86 Estimated GFR > 60 BUN/Creatinine Ratio 20.9 Glucose 102 Calcium 9.9 Magnesium 2.1 Total Bilirubin 0.3 AST 27 ALT 21 Alkaline Phosphatase 81 Total Creatine Kinase 68 CK-MB (CK-2) TNP CK-MB (CK-2) Rel Index TNP Troponin I < 0.012 Total Protein 7.4 Albumin 4.1 Globulin 3.3 Albumin/Globulin Ratio 1.2 Lipase 120 Assessment & Plan Assessment & Plan narrative: Kenyetta King is a 67-year-old female with a past medical history of TIA, HLD, hypothyroidism, lupus, depression who had approximately a 2 hour episode of word-finding difficulties and severe dizziness unable to stand, and was found to have residual decreased sensation left-sided facial and left forearm. Patient admitted for TIA risk stratification workup TIA, acute, (word-finding, decreased sensation, dizziness), history of TIA, head cook mendy, present on admission * NIH score: 1 * Plavix, ASA, Lipitor * Ordered A1c lipids * MR and echo ordered Hyperlipidemia, chronic, present on admission * Continue Lipitor Hypothyroidism, acquired, chronic, present on admission * Continue levothyroxine * TSH/T4 ordered Depression, chronic, present on admission * Continue duloxetine Malnutrition, mild, acute on chronic, present on admission * BMI 23.9 * patient's malnutrition places them at high risk for medical and surgical complications in relation to acute illness/chronic illness. This increases the difficulty in complexity of medical management and increases the chances poor outcomes such as mortality and morbidity as well as impaired wound he aling, and immune suppression. * dietary consult ordered to evaluate and implement steps to improve caloric intake and nutrition. Code status: Full Surrogate decision maker: Sj King spouse DVT/VTE prophylaxis: Lovenox and SCDs Disposition: Patient brought in for TIA risk stratification workup, expected length of stay not to exceed 2 midnights. I have utilized all available immediate resources to obtain, update, or review the patient's current medications. I confirmed that the patient's advanced care plan is present, Code status is documented and/or surrogate decision maker is listed in the patient's medical record. I have personally reviewed patient's chart notes from PCP, specialists, diagnostic imaging, and laboratory results.
[2022-08-22 05:41] LABS: NT-proBNP (BNP-Adult 18+) 31 pg/mL (<125)
[2022-08-22 06:03] LABS: TSH w/ Reflex to FT4 2.04 uIU/mL (0.47-4.68)
[2022-08-22] MEDS: LEVOTHYROXINE 75 MCG TABLET PO (06:30)
[2022-08-22 06:47] LABS: Cholesterol 270 mg/dL (140-199); HDL Cholesterol 56 mg/dL (40-60); LDL Cholesterol Calculated 190 mg/dL (<100); Triglycerides 120 mg/dL (35-150)
--- NOTE | 2022-08-22 07:57 | PC.NURSE ---
According to patient she is taking 3 different doses of thyroid medications, 2 of then are from her new MD with his 15 mg tabs and 30 mg tabs. she has an old bottle of thyroid medication 75 mcg that she is taking along with the other two.
[2022-08-22] MEDS: ASPIRIN EC 325 MG TABLET PO (09:06)
[2022-08-22] MEDS: CLOPIDOGREL 75 MG TABLET PO (09:06)
[2022-08-22] MEDS: DULOXETINE 30 MG CAPSULE PO (09:06)
--- NOTE | 2022-08-22 11:09 | PT.IIE ---
Medical History (Last Reviewed 08/22/22 @ 05:13 by Sridevi Benavides [facility]) Fibromyalgia Hypothyroidism Lupus (systemic lupus erythematosus) TIA (transient ischemic attack) Physical Therapy Inpatient Evaluation/Re-Eval M1 PT/OT-IP Prior Functional Status Start: 08/22/22 08:39 Freq: NEEDED Status: Active Protocol: Document 08/22/22 11:09 DLM (Rec: 08/22/22 11:28 DL [id number]) Medical Review Prior Functional Status Medical History Reviewed Yes Diet/Fluid Consistency Regular Communication WNL, wears reading glasses at night Mobility and Gait Independent without a device, ambulates community distances Activities of Daily Living and IADL's Independent Prior Functional Level (Other details) hx of BPPV in remote past that resolved without physical therapy treatment Social History Household Members spouse Living Arrangements House Number of Floors (Floors) Two Floors Number of Stairs To Enter/Railing? she can stay on main level of house, guest rooms on second floor Employment Status Retired Additional Social History Comment Spouse is healthy and able to assist if needed at home M2 PT-IP Current Condition Start: 08/22/22 08:39 Freq: NEEDED Status: Active Protocol: Document 08/22/22 11:09 DLM (Rec: 08/22/22 11:28 DL [id number]) Physical Therapy Current Condition Current Condition Evaluation Date 08/22/22 Treatment Diagnosis TIA, dizziness Onset Date 08/22/22 M3 PT-IP Subjective Start: 08/22/22 08:39 Freq: NEEDED Status: Active Protocol: Document 08/22/22 11:09 DLM (Rec: 08/22/22 11:28 DL [id number]) Subjective Physical Therapy Visit Type Type Initial Evaluation Visit Start Time 10:30 Visit Stop Time 11:09 Total Visit Minutes 39 Number of [employer] Visits 0 Physical Therapy Visit Comments Patient Comments She feels better, tired today, has company from [employer] at her house Patient Goals discharge home Therapy Pain Assessment Pain When Pain Assessed During Mobility Pain Present Pain Present Denied Pain M4 PT-IP Mobility and Gait Start: 08/22/22 08:39 Freq: NEEDED Status: Active Protocol: Document 08/22/22 11:09 DLM (Rec: 08/22/22 11:28 DL [id number]) PT-Bed Mobility Assessment Rolling Type of Rolling Bilateral Level of Assist Independent Supine to Sit Supine to Sit Independent Sit to Supine Sit to Supine Independent Scooting Scooting to Edge of Bed Independent Scooting Up and Down in Bed Independent PT-Transfer Assessment Sit to and From Stand Sit to and from Stand Independent Equipment Transfer Assistive Device None Transfers Transfer Destination Bed Transfer Technique Stand Step Pivot Transfer Ability Level of Assist Independent Gait Assessment Gait Gait Assistance Required: Independent Distance (Feet) 250 Assistive Devices Assistive Device None Gait Deviations General Gait Pattern Within Normal Limits Factors Limiting Gait Function Factors Limiting Gait Function Decreased Activity Tolerance Comments Gait Comments mild dizziness when she looks side to side with associated nausea Stair Climbing Assessment Evaluation Level of Assist On Stairs Independent Devices Stair Climbing Assistive Devices None Technique/Endurance Stair Climbing Direction Ascend and Descend Stair Climbing Technique Step Over Step Number of Steps Climbed 3 Query Text: Stair Climbing Set # Repetitions (reps) 1 PT-Balance Assessment Sitting Balance and Reactions Static Sitting Balance Ability Normal Dynamic Sitting Balance Ability Normal Standing Balance and Reactions Static Standing Balance Ability Normal Dynamic Standing Balance Ability Normal Device Used none Balance Tests Single Limb Standing independent greater than 10 sec each LE Romberg independent eyes open and closed in narrow base Tandem Standing independent for at least 30 sec each LE Marques Balance Test Score 56/56 Query Text:Score M5 PT-IP Objective Assessments Start: 08/22/22 08:39 Freq: NEEDED Status: Active Protocol: Document 08/22/22 11:09 [facility] (Rec: 08/22/22 11:28 [facility] [id number]) Orientation Orientation/Cognition Level of Alertness Alert Orientation Name,Age,Birthday,Month,Date, Year,Day of Week,Place, Situation Language Function Ability No Deficits Noted Safety Awareness Understands Safety Issues Memory Description No Deficits Noted Gross Range of Motion Upper Extremity ROM Assessment Within Functional Limits Lower Extremity ROM Assessment Within Functional Limits Strength Upper Extremity Strength Assessment Within Functional Limits Lower Extremity Strength Assessment Within Functional Limits Coordination Assessment Gross Coordination Gross Coordination WNL Sensation Assessment Sensation Gross Sensation WNL Muscle Tone Muscle Tone WNL Yes Other Assessments Other Other Assessments She reports no changes in her vision. Smooth pursuits: mild ragged movement with horizontal with dizziness and nausea, WNL horizontal Saccades: mild dizziness and nausea with horizontal although movements appear WNL, no symptoms with horizontal which are also WNL M6 PT-IP Treatment Start: 08/22/22 08:39 Freq: NEEDED Status: Active Protocol: Document 08/22/22 11:09 DLM (Rec: 08/22/22 11:28 DL [id number]) Physical Therapy Treatment Education Education Provided Safety Other Treatments Other Treatment Performed her Spouse observed this treatment session M7 PT-IP Assessment and Plan Start: 08/22/22 08:39 Freq: NEEDED Status: Active Protocol: Document 08/22/22 11:09 DLM (Rec: 08/22/22 11:28 DL [id number]) PT Summary Assessment and Plan Potential Rehabilitation Potential Good Status of Condition at Evaluation Evolving Summary Impairments Activity Tolerance Progress Towards Goals Safe For Discharge Assessment Summary Nirmala reports feeling better today. She describes being tired from not sleeping well at the hospital. She demonstrates normal strength and balance at this time. She has mild dizziness and nausea with horizontal eye motions ( saccades and smooth pursuits) both during testing and during gait. Her symptoms improved with seated rest breaks. She tolerated gait in the [place] well and was safe going up/ down stairs. She appears safe to discharge home with her . She may benefit from out-pt physical therapy for vestibular rehab if her dizziness continues with horizontal eye movements. Her clinical symptoms suggest a mild incoordination of her vestibular/Occular movements. Frequency of Treatment Frequency Of Treatment Discharge Treatment Plan Other Recommendations and Next Treatment education completed this visit Focus with patient regarding clinical findings and out-pt follow up Precautions Other Precautions monitor dizziness Recommendations To Nursing Amount of Assist Needed Independent Discharge Recommendations PT Discharge Recommendations Home Other Discharge Recommendations she may benefit from out-pt physical therapy for vestibular rehab if her symptoms persist Transportation Needs at Discharge Private Vehicle
--- NOTE | 2022-08-22 11:09 | CM.DANOTE ---
DCP: Case received, EMR reviewed and met with patient. Introduced self and role. Was able to obtain information regarding patient's baseline activity status at home prior to admission. DCP assessment completed with information currently available. Patient is a 67 year old female who admitted early this morning to the care of the hospitalist team. PCP: Dr. Loyd. Payer: confirmed: Medicare. Patient came to the hospital via private vehicle secondary to dizziness, which occurred when she was sitting on the floor. Patient had also been having word-finding difficulties. Spouse was able to assist patient off of the floor, was able to assist her back to bed. Patient had noted vertigo. Patient admitted for TIA. Patient had MRI. Patient does have history of Lupus, depression. Met with patient in her room. She is alert, pleasant. Confirmed that she resides in [place] with spouse, Sj. She is independent at her baseline. P: DCP to continue to follow. Patient does have P.T. orders. Plan is home when deemed medically stable. Tessa Alexis RN/Cellophane Wrapping Examiner Discharge Planning/Care Management Discharge Assessment Start: 08/22/22 11:01 Freq: Status: Active Protocol: Document 08/22/22 11:01 (Rec: 08/22/22 11:02 [id number]) Discharge Planning Assessment Assigned Preparation Room Worker Tessa Alexis RN/Cellophane Wrapping Examiner Advance Directives? No History Provided By Patient,Medical Record Prior Living Arrangements House Household Members spouse Type of transporation used prior to Drives own vehicle admit Independent with ADL's Yes Is patient alert and oriented? Yes Caregiver for Another No Barriers to Discharge No Discharge Plan Home Transportation Arrangement Spouse Referrals Initiated None needed Whiteboard Updated in Patient Room with Yes name and ext. # of Preparation Room Worker Review Status In Process Next Review Type Continued Stay Review
--- NOTE | 2022-08-22 11:33 | DI.ECHO.S_ITS ---
[place] [facility]---------+ [facility] +---------+ : : [address] [address] : : : : [id number] : : : : Phone: [phone]+ Echocardiogram Report + + :Name: ALEKSANDRA HUTCHINSON Study Date: 08/22/2022 Height: 59 in : :[facility] ReadingLocation: [place] Weight: 110 lb : : Gender: Female BSA: 1.4 m2 : :: 1955 Age: 67 yrs BP: 132/71 mmHg: :Reason For Study: TIA : : Performed By: Maxine Yuan : :Referring: SHANNAN CONNORS : + + Interpretation Summary The ejection fraction is estimated to be 60-65%. Diastolic parameters suggest probable normal left ventricular diastolic function and normal filling pressures. The right ventricle is normal in size and function. Injection of contrast documented no interatrial shunt. No significant valvular abnormalities. Pulmonary artery pressures cannot be estimated because of the lack of a measurable TR jet velocity. Procedure: A two-dimensional transthoracic echocardiogram with color flow and Doppler was performed. The study quality was technically good. There is no prior echocardiogram noted for this patient. The heart rate ranged between 59- 77 bpm during the study. The patient was in normal sinus rhythm during the exam. Left Ventricle: The left ventricular cavity is small. There is normal left ventricular wall thickness. A false chord is noted (normal variant). Left ventricular systolic function is normal. The ejection fraction is estimated to be 60-65%. There are no focal wall motion abnormalities. Diastolic parameters suggest probable normal left ventricular diastolic function and normal filling pressures. Right Ventricle: The right ventricle is normal in size and function. Atria: Both atria are normal in size. Injection of contrast documented no interatrial shunt. Bubble study was captured on image frame(s) # 95, #96. Mitral Valve: The mitral valve is normal in structure and function. There is trace mitral regurgitation. Aortic Valve: The aortic valve is trileaflet. The aortic valve opens well. There is no aortic valve stenosis. No aortic regurgitation is present. Tricuspid Valve: The tricuspid valve is normal in structure and function. There is trace tricuspid regurgitation. Pulmonary artery pressures cannot be estimated because of the lack of a measurable TR jet velocity. Pulmonic Valve: The pulmonic valve leaflets are thin and pliable; valve motion is normal. There is no pulmonic valvular regurgitation. Great Vessels: The aortic root is normal size. The ascending aorta is normal in size. The aortic arch is normal in size. The pulmonary artery is normal size. The IVC is of normal diameter and collapses greater than 50% with a sniff. This suggests a low right atrial pressure of 3 mm Hg. Pericardium/ Pleura There is no pericardial effusion. There is no pleural effusion. MMode/2D Measurements & Calculations LVIDd: 3.3 cm LVOT diam: 1.8 cm LVIDs: 2.0 cm Ao root diam: 2.5 cm FS: 39.3 % asc Aorta Diam: 2.7 cm EPSS: 0.11 cm Ao Arch Diam (Prox Trans): 2.5 cm IVSd: 0.86 cm LVPWd: 0.66 cm LV srivastava. diameter/BSA (cm/m^2): 2.3 LV sys. diameter/BSA (cm/m^2): 1.4 LA A2 area: 9.7 cm2 RA long axis: 3.7 cm LA A4 area: 12.4 cm2 RA area: 10.1 cm2 LA length (vol): 4.4 cm RA vol: 23.6 ml LA vol: 23.1 ml RA : 16.5 ml/m2 LA vol index: 16.1 ml/m2 IVC diam: 1.5 cm TAPSE: 2.2 cm Doppler Measurements & Calculations Ao V2 max: 110.6 cm/sec LVOT Max Gordon: 82.1 cm/sec Ao V2 mean: 91.3 cm/sec LV V1 max P.7 mmHg Ao max P.9 mmHg LV V1 VTI: 17.1 cm Ao mean P.4 mmHg RADHA(I,D): 1.7 cm2 Ao V2 VTI: 25.3 cm RADHA(V,D): 1.9 cm2 sev ratio: 0.68 RADHA indexed to BSA (cm^2/m^2): 1.2 MV E max gordon: 67.9 cm/sec PA V2 max: 65.9 cm/sec MV A max gordon: 63.0 cm/sec PA V2 mean: 51.5 cm/sec MV E/A: 1.1 PA pr(Accel): 17.3 mmHg Med Peak E' Gordon: 7.3 cm/sec E/E' med: 9.3 Lat Peak E' Gordon: 10.1 cm/sec E/E' lat: 6.7 E/e' average: 8.0 MV dec time: 0.25 sec [facility] 42.7 ml Reading Physician:02:04 PM
--- NOTE | 2022-08-22 12:15 | PM.DS.1 ---
History of Present Illness History of Present Illness Date Patient Seen: 08/22/22 Chief complaint: TIA Discharge Providers Provider Date of admission: 08/22/22 04:53 Discharge Date: 08/22/22 Primary care physician: Carmen Loyd DO Consults: 08/22/22 05:00 Consult to Occupational Therapy Evaluate & Treat Comment: Physician Instructions: Evaluate and treat Consult to Physical Therapy Evaluate & Treat Comment: Physician Instructions: Evaluate and Treat Consult to Speech Therapy Evaluate & Treat Comment: Physician Instructions: Evaluate and treat 08/22/22 05:04 Consult to Dietitian, Adult Routine Comment: Reason For Exam: bmi 23 Discharge provider: Kaye Frausto MD Summary Hospital Course Discharge Diagnosis: TIA, acute, present on admission History of previous TIA Hyperlipidemia, chronic, present on admission Hypothyroidism, acquired, chronic, present on admission Depression, chronic, present on admission Fibromyalgia history Hospital Course: Kenyetta King is a 67-year-old female with a past medical history of TIA, HLD, hypothyroidism, lupus, depression who presented to the ED after suffering an episode where she suddenly found she was unable to speak, and felt the room spinning and was unable to stand symptoms persisted for approximately 2 hours upon resolution her spouse brought her into the ED. On exam, ER physician Dr. Walls found that the patient had decreased sensation to left side of face, and left forearm NIH score: 1.? Head CT and CTA were negative. MRI was completed and that was negative. Echocardiogram of the heart was completed and that was normal. Patient discharged for treatment of TIA with initial 5 day dose of ASA being 162 mg followed by 81 mg daily and clopidogrel 75 mg for 20 more days after discharge. Status at Discharge Cognitive/behavioral status at discharge: at baseline, oriented Functional status at discharge: independent ambulation Overall status at discharge: patient is back to baseline Time Spent with Patient Time spent: Less than 30 minutes Exam Vital Signs (past 8 hours): - 08/22/22 05:09 08/22/22 05:10 08/22/22 05:10 Temperature Pulse Rate 71 69 Respiratory Rate Blood Pressure 119/66 Pulse Oximetry 97 99 Oxygen Flow Rate 08/22/22 05:22 08/22/22 05:30 08/22/22 08:00 Temperature 97.6 F 97.1 F L 97.1 F L Pulse Rate 69 58 L Respiratory Rate 20 17 Blood Pressure 130/79 132/71 Pulse Oximetry 99 98 Oxygen Flow Rate 0 0 Oxygen Delivery Method Room Air Oxygen Flow Rate 0 Narrative Exam Narrative: General:? Patient is a well-developed, well-nourished in no distress at this time. HEENT:? Normocephalic, atraumatic, extraocular muscles intact Chest:? Equal chest rise without nasal flaring, retractions Neuro:? Alert and orientated x3, moves all extremities Psych:? Patient has a well-kept appearance, appropriate affect, mental status attitude thought context and judgment are appropriate for age. Objective Labs 08/22/22 00:10 08/22/22 00:10 Labs: Laboratory Results - last 24 hr 08/22/22 08/22/22 08/22/22 00:10 00:10 00:10 WBC 9.4 RBC 4.11 Hgb 13.0 Hct 37.9 MCV 92.2 MCH 31.6 MCHC 34.3 RDW 12.9 Plt Count 348 Neut % (Auto) 57.9 Lymph % (Auto) 32.0 [place] % (Auto) 7.7 Eos % (Auto) 1.9 L Baso % (Auto) 0.5 Neut # (Auto) 5500 Lymph # (Auto) 3000 [place] # (Auto) 700 Eos # (Auto) 200 Baso # (Auto) 0 PT 12.0 INR 1.0 APTT 32 Sodium 137 Potassium 3.9 Chloride 102 Carbon Dioxide 31 BUN 18 H Creatinine 0.86 Estimated GFR > 60 BUN/Creatinine Ratio 20.9 Glucose 102 Calcium 9.9 Magnesium 2.1 Total Bilirubin 0.3 AST 27 ALT 21 Alkaline Phosphatase 81 Total Creatine Kinase 68 CK-MB (CK-2) TNP CK-MB (CK-2) Rel Index TNP Troponin I < 0.012 NT-Pro-B Natriuret Pep Total Protein 7.4 Albumin 4.1 Globulin 3.3 Albumin/Globulin Ratio 1.2 Triglycerides Cholesterol LDL Cholesterol, Calc HDL Cholesterol Lipase 120 TSH 08/22/22 08/22/22 08/22/22 00:10 00:10 06:28 WBC RBC Hgb Hct MCV MCH MCHC RDW Plt Count Neut % (Auto) Lymph % (Auto) [place] % (Auto) Eos % (Auto) Baso % (Auto) Neut # (Auto) Lymph # (Auto) [place] # (Auto) Eos # (Auto) Baso # (Auto) PT INR APTT Sodium Potassium Chloride Carbon Dioxide BUN Creatinine Estimated GFR BUN/Creatinine Ratio Glucose Calcium Magnesium Total Bilirubin AST ALT Alkaline Phosphatase Total Creatine Kinase CK-MB (CK-2) CK-MB (CK-2) Rel Index Troponin I NT-Pro-B Natriuret Pep 31 Total Protein Albumin Globulin Albumin/Globulin Ratio Triglycerides 120 Cholesterol 270 H LDL Cholesterol, Calc 190 H HDL Cholesterol 56 Lipase TSH 2.04 [facility] Medical History Fibromyalgia Hypothyroidism Lupus (systemic lupus erythematosus) TIA (transient ischemic attack) Family History (Updated 08/22/22 @ 07:38 by JOYCE Engle) Mother No problems noted. Father No problems noted. Social History household members: spouse Smoking Status: Never smoker alcohol intake: current substance use type: does not use Discharge Plan Discharge Plan Patient Disposition: Home Discharge orders & Medications Prescriptions: New atorvastatin 20 mg Tablet 20 mg PO BEDTIME Qty: 30 0RF clopidogrel 75 mg Tablet 75 mg PO DAILY Qty: 20 0RF levothyroxine [Synthroid] 75 mcg Tablet 75 mcg PO QACBREAK Qty: 30 0RF calcium carbonate 200 mg calcium (500 mg) Tablet,Chewable 1,000 mg PO Q4HR PRN (Reason: Dyspepsia) Qty: 60 0RF duloxetine [Cymbalta] 30 mg Capsule,Delayed Release(Dr/Ec) 30 mg PO DAILY Qty: 30 0RF aspirin 81 mg tablet,delayed release (DR/EC) 81 mg PO DAILY Qty: 60 0RF Rx Instructions: For 5 day take 2 tablets daily then continue with 1 tablet daily lifelong. 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
[2022-08-23 23:01] LABS: x Labcorp Estim. Avg Glu (eAG) 117 mg/dL (.); x Labcorp Hemoglobin A1c 5.7 % (4.8-5.6)
== END 2022-08-22 13:25 | disposition home or self-care (01) ==
LOC: ED 08-22 02:40 → AC 08-22 04:54
PROVIDERS: Admitting Provider Nurse Practitioner Family; Emergency Provider Emergency Medicine; PCP Family Medicine; Visit Provider Nurse Practitioner Family
DX: G45.9 Transient cerebral ischemic attack, unspecified (principal); E44.1 Mild protein-calorie malnutrition; Z68.23 Body mass index [BMI] 23.0-23.9, adult; F32.A Depression, unspecified; E03.9 Hypothyroidism, unspecified; E78.5 Hyperlipidemia, unspecified; R29.701 NIHSS score 1
CPT/HCPCS: 36415; 70496; 70498; 70551; 71045; 80053; 80061; 82550; 83036; 83690; 83735; 83880; 84443; 84484; 85025; 85610; 85730; 93005; 93306; 97161; 99284; G0378; Q9967

== ENCOUNTER 2022-11-15 14:23 | Emergency (ER) | payer MEDICARE, OTHER, SELFPAY ==
[2022-11-15] VITALS (24 sets, daily range): BP systolic 115–143; BP diastolic 63–98; PULSE 65–85; RESP 13–22; TEMP 36.5; O2SAT 96–100; BMI 23.8; BMI 23.3
--- NOTE | 2022-11-15 14:44 | DI.RAD.S_ITS ---
PROCEDURE: XR CHEST 1V INDICATIONS: chest pain TECHNIQUE: One view of the chest was acquired. COMPARISON: [facility], CR, XR CHEST 1V, 08/22/2022, 0:05. [facility], CR, XR CHEST 1V, 09/28/2021, 11:15. FINDINGS: Surgical changes and devices: None. Lungs and pleura: Lungs are clear. No pleural effusions or pneumothorax. Mediastinum: Mediastinal contours appear normal. Heart size is normal. Bones and chest wall: No suspicious bony lesions. Overlying soft tissues appear unremarkable. IMPRESSION: No acute cardiopulmonary abnormality. Approved by: David Pandya M.D. on 11/15/2022 at 15:43
[2022-11-15 15:22] LABS: Add Manual Diff / Slide Review NO; Basophils Absolute Auto 100 /uL (0-100); Basophils Percent Auto 0.6 % (0-2); Eosinophils Absolute Auto 100 /uL (0-450); Eosinophils Percent Auto 1.1 % (2-4); Hematocrit 39.1 % (36-46); Hemoglobin 13.2 g/dL (12.0-16.0); Lymphocytes Absolute Auto 1600 /uL (1100-4500); Lymphocytes Percent Auto 16.1 % (25-40); Mean Corpuscular HGB Conc 33.9 % (30-36); Mean Corpuscular Hemoglobin 31.5 PG (26-34); Mean Corpuscular Volume 92.9 fL (80-100); Monocytes Absolute Auto 500 /uL (0-900); Monocytes Percent Auto 5.3 % (3-14); Neutrophils Absolute Auto 7700 /uL (1500-7000); Neutrophils Percent Auto 76.9 % (50-75); Platelet Count 357 X10^3/uL (150-400); Red Blood Cell Count 4.21 X10^6/uL (4.0-5.2); Red Cell Distribution Width 13.3 % (11.6-14.8)
[2022-11-15 15:25] LABS: INR 1.1 (0.9-1.3); Prothrombin Time 12.3 SECONDS (10.1-12.7)
[2022-11-15 15:28] LABS: PTT Partial Thromboplastin Tim 31 SECONDS (26-36)
[2022-11-15 15:31] LABS: Alanine Aminotransferase 25 IU/L (<35); Albumin 4.1 g/dL (3.5-5.0); Albumin Globulin Ratio 1.3 (1.0-2.8); Alkaline Phosphatase 63 U/L (38-126); Aspartate Aminotransferase 30 IU/L (14-36); BUN Creatinine Ratio 21.9 (6-22); Bilirubin Total 0.4 mg/dL (0.2-1.3); Blood Urea Nitrogen 16 mg/dL (7-17); Calcium 9.5 mg/dL (8.4-10.2); Carbon Dioxide 26 mmol/L (22-32); Chloride 105 mmol/L (98-107); Creatine Kinase 58 U/L (30-135); Estimated Glomerular Filt Rate > 60 mL/min (>60); Globulin 3.2 g/dL (1.7-4.1); Glucose 127 mg/dL (80-110); HEMOLYSIS < 15 (0-50); Lipase 90 U/L (23-300); Magnesium 2.1 mg/dL (1.6-2.3); Potassium 3.9 mmol/L (3.4-5.1); Sodium 137 mmol/L (137-145); Total Protein 7.3 g/dL (6.3-8.2)
[2022-11-15 15:42] LABS: Troponin I < 0.012 ng/mL (0.01-0.034)
--- NOTE | 2022-11-15 19:03 | ED.GENADULT ---
HPI - General Adult General Chief complaint: Dizziness Stated complaint: poss TIA Time Seen by Provider: 11/15/22 18:04 Source: patient Mode of arrival: Wheelchair History of Present Illness HPI narrative: 67-year-old female nonsmoker with history of hypertension, hyperlipidemia, prior TIA in August of this year presents for evaluation which she initially described as dizziness upon waking today. She states it was not dizziness like vertigo and denies that the room is spinning. She states that she would gone to sleep in her normal state of health upon waking felt a fullness in her head and had some darkening of her vision at the periphery. She states that the symptoms were so severe that she had a hard time getting around earlier but now symptoms are essentially gone. She is tearful and states that she is scared because these symptoms are a lot like when she was treated for a TIA earlier in the year. She denies any blurred vision or trouble with speech. She denies numbness, tingling or weakness of her extremities. She denies any difficulty ambulating. She denies chest pain or shortness of breath. She is had no trauma or injury. She denies neck pain, fever or chills. 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 DAILY 08/22/22 08/25/22 Thyroid) Previous Rx's Medication Instructions Recorded aspirin 81 mg tablet,delayed 81 mg PO DAILY Daily for TIA 08/22/22 release prevention #60 tabs atorvastatin 20 mg tablet 20 mg PO BEDTIME #30 tabs 08/22/22 calcium carbonate 200 mg calcium 1,000 mg PO Q4HR PRN Dyspepsia #60 08/22/22 (500 mg) chewable tablet tabs levothyroxine 75 mcg tablet 75 mcg PO QACBREAK #30 tabs 08/22/22 (Synthroid) clopidogrel 75 mg tablet 75 mg PO DAILY #20 tabs 08/25/22 duloxetine 30 mg capsule,delayed 30 mg PO DAILY #90 caps 09/28/22 release (Cymbalta) Allergies Allergy/AdvReac Type Severity Reaction Status Date / Time No Known Drug Allergies Allergy Verified 11/15/22 14:41 Review of Systems Review of Systems Narrative: GENERAL: Denies chills, fatigue, malaise, fever, sweats. HEENT: Denies sinus pain, ear pain, sore throat, difficulty swallowing, dizziness. RESPIRATORY: Denies dyspnea, cough, wheezing, hemoptysis, sputum. CARDIOVASCULAR: Denies chest pain, palpitations, orthopnea, edema, GASTROINTESTINAL: Denies nausea, vomiting, abdominal pain, diarrhea, constipation, melena. : Denies dysuria, frequency, incontinence, hematuria, urinary retention. MUSCULOSKELETAL: denies weakness, joint pain, or bony pain SKIN: Denies rash, skin lesions, or other NEUROLOGIC: Denies weakness, headache, numbness, change in speech, confusion, seizures, incoordination. PSYCHIATRIC: No concerning psychosocial issues. 12 point review of systems is negative except for those stated above Patient History Medical History Fibromyalgia Hypothyroidism Lupus (systemic lupus erythematosus) TIA (transient ischemic attack) Family History (Updated 08/22/22 @ 07:38 by JOYCE Engle) Mother No problems noted. Father No problems noted. Social History household members: spouse Smoking Status: Never smoker alcohol intake: current substance use type: does not use Smoking Status: Never smoker Substance Use Type: does not use Exam Narrative Exam Narrative: GENERAL: [67] year old patient appears stated age. Well-developed patient, in mild distress. HEAD: Atraumatic. Normocephalic. EYES: Pupils equal round and reactive. Extraocular motions intact. No scleral icterus. No injection or drainage. ENT: Nose without bleeding, purulent drainage. Throat without erythema, tonsillar hypertrophy or exudate. Airway patent. NECK: Trachea midline. Non tender CARDIOVASCULAR: Regular rate and rhythm without murmurs, gallops, or rubs. RESPIRATORY: Clear to auscultation. Breath sounds equal bilaterally. No wheezes, rales, or rhonchi. GASTROINTESTINAL: Abdomen soft, non-tender, nondistended. EXTREMITIES: No edema or joint tenderness. BACK: Nontender without deformity or crepitance. No flank tenderness. NEURO: AOx3. Cranial nerves 2-12 grossly intact SKIN: No rash or erythema of visible areas NIH Stroke Scale 1a. LOC: Patient is alert and keenly responsive (0) 1b. LOC Questions: Patient answers both LOC questions accurately (0) 1c. LOC Commands: Patient performs both tasks correctly (0) 2. Best Gaze: Normal (0) 3. Visual: No visual loss (0) 4. Facial palsy: Normal symmetrical movements (0) 5. Motor arm: No drift (0) 6. Motor leg: No drift (0) 7. Limb ataxia: Absent (0) 8. Sensory: Normal (0) 9. Best language: No aphasia; normal (0) 10. Dysarthria: Normal (0) 11. Extinction and inattention: No abnormality (0) NIHSS: 0 Initial Vital Signs Initial Vital Signs: Vital Signs Temperature 97.7 F 11/15/22 14:41 Pulse Rate 70 11/15/22 14:41 Respiratory Rate 18 11/15/22 14:41 Blood Pressure 143/69 H 11/15/22 14:41 Pulse Oximetry 99 11/15/22 14:41 Oxygen Delivery Method Room Air 11/15/22 14:41 Course Orders Ordered: Discontinued Medications Aspirin (Aspirin 81 Mg Chew Tab) 324 mg PO NOW ONE Stop: 11/15/22 14:45 Last Admin: 11/15/22 16:04 Dose: Not Given Documented By: BAKARI Vital Signs Vital signs: Vital Signs - 8 hr 11/15/22 14:41 11/15/22 16:13 11/15/22 16:14 Temperature 97.7 F Pulse Rate 70 72 69 Respiratory Rate 18 15 15 Blood Pressure 143/69 H Pulse Oximetry 99 98 Oxygen Delivery Method Room Air 11/15/22 16:14 11/15/22 16:30 11/15/22 16:31 Temperature Pulse Rate 70 69 Respiratory Rate 17 17 Blood Pressure 134/69 Pulse Oximetry 97 97 Oxygen Delivery Method 11/15/22 16:31 11/15/22 17:00 11/15/22 17:01 Temperature Pulse Rate 72 71 Respiratory Rate 17 17 Blood Pressure 118/67 Pulse Oximetry 96 96 Oxygen Delivery Method 11/15/22 17:01 11/15/22 17:30 11/15/22 17:30 Temperature Pulse Rate 71 Respiratory Rate 18 Blood Pressure 139/64 115/63 Pulse Oximetry 96 Oxygen Delivery Method 11/15/22 18:00 11/15/22 18:00 11/15/22 18:35 Temperature Pulse Rate 68 67 Respiratory Rate 17 14 Blood Pressure 121/65 Pulse Oximetry 97 99 Oxygen Delivery Method 11/15/22 18:36 11/15/22 18:36 11/15/22 19:00 Temperature Pulse Rate 65 Respiratory Rate Blood Pressure 139/74 138/77 Pulse Oximetry 100 Oxygen Delivery Method 11/15/22 19:00 Temperature Pulse Rate 67 Respiratory Rate 15 Blood Pressure Pulse Oximetry 98 Oxygen Delivery Method Medical Decision Making Lab Data 11/15/22 15:09 11/15/22 15:09 Labs: Lab Results 11/15/22 11/15/22 11/15/22 Range/Units 15:09 15:09 15:09 WBC 10.0 (4.5-11.0) X10^3/uL RBC 4.21 (4.0-5.2) X10^6/uL Hgb 13.2 (12.0-16.0) g/dL Hct 39.1 (36-46) % MCV 92.9 (80-100) fL MCH 31.5 (26-34) PG MCHC 33.9 (30-36) % RDW 13.3 (11.6-14.8) % Plt Count 357 (150-400) X10^3/uL Neut % (Auto) 76.9 H (50-75) % Lymph % (Auto) 16.1 L (25-40) % [place] % (Auto) 5.3 (3-14) % Eos % (Auto) 1.1 L (2-4) % Baso % (Auto) 0.6 (0-2) % Neut # (Auto) 7700 H (7408-5542) /uL Lymph # (Auto) 1600 (8306-8196) /uL [place] # (Auto) 500 (0-900) /uL Eos # (Auto) 100 (0-450) /uL Baso # (Auto) 100 (0-100) /uL PT 12.3 (10.1-12.7) SECONDS INR 1.1 (0.9-1.3) APTT 31 (26-36) SECONDS Sodium 137 (137-145) mmol/L Potassium 3.9 (3.4-5.1) mmol/L Chloride 105 (98-107) mmol/L Carbon Dioxide 26 (22-32) mmol/L BUN 16 (7-17) mg/dL Creatinine 0.73 (0.52-1.04) mg/dL Estimated GFR > 60 (>60) mL/min BUN/Creatinine Ratio 21.9 (6-22) Glucose 127 H (80-110) mg/dL Calcium 9.5 (8.4-10.2) mg/dL Magnesium 2.1 (1.6-2.3) mg/dL Total Bilirubin 0.4 (0.2-1.3) mg/dL AST 30 (14-36) IU/L ALT 25 (<35) IU/L Alkaline Phosphatase 63 (38-126) U/L Total Creatine Kinase 58 (30-135) U/L Troponin I < 0.012 (0.01-0.034) ng/mL Total Protein 7.3 (6.3-8.2) g/dL Albumin 4.1 (3.5-5.0) g/dL Globulin 3.2 (1.7-4.1) g/dL Albumin/Globulin Ratio 1.3 (1.0-2.8) Lipase 90 (23-300) U/L Urine RBC (0-5/HPF) Urine WBC (0-5/HPF) Ur Squamous Epith Cells (0-5/HPF) Urine Bacteria (None) Micro UA Comment 11/15/22 Range/Units 20:40 WBC (4.5-11.0) X10^3/uL RBC (4.0-5.2) X10^6/uL Hgb (12.0-16.0) g/dL Hct (36-46) % MCV (80-100) fL MCH (26-34) PG MCHC (30-36) % RDW (11.6-14.8) % Plt Count (150-400) X10^3/uL Neut % (Auto) (50-75) % Lymph % (Auto) (25-40) % [place] % (Auto) (3-14) % Eos % (Auto) (2-4) % Baso % (Auto) (0-2) % Neut # (Auto) (0870-5477) /uL Lymph # (Auto) (3081-5774) /uL [place] # (Auto) (0-900) /uL Eos # (Auto) (0-450) /uL Baso # (Auto) (0-100) /uL PT (10.1-12.7) SECONDS INR (0.9-1.3) APTT (26-36) SECONDS Sodium (137-145) mmol/L Potassium (3.4-5.1) mmol/L Chloride (98-107) mmol/L Carbon Dioxide (22-32) mmol/L BUN (7-17) mg/dL Creatinine (0.52-1.04) mg/dL Estimated GFR (>60) mL/min BUN/Creatinine Ratio (6-22) Glucose (80-110) mg/dL Calcium (8.4-10.2) mg/dL Magnesium (1.6-2.3) mg/dL Total Bilirubin (0.2-1.3) mg/dL AST (14-36) IU/L ALT (<35) IU/L Alkaline Phosphatase (38-126) U/L Total Creatine Kinase (30-135) U/L Troponin I (0.01-0.034) ng/mL Total Protein (6.3-8.2) g/dL Albumin (3.5-5.0) g/dL Globulin (1.7-4.1) g/dL Albumin/Globulin Ratio (1.0-2.8) Lipase (23-300) U/L Urine RBC 1-5/hpf (0-5/HPF) Urine WBC None seen (0-5/HPF) Ur Squamous Epith Cells 1-5 /hpf (0-5/HPF) Urine Bacteria None seen (None) Micro UA Comment * Urine Dip Bedside Urine Glucose Negative Bedside Urine Bilirubin - Negative Bedside Urine Ketone - Negative Urine Specific [place] 1.015 Bedside Urine Occult Blood + Bedside Urine pH 6.0 Bedside Urine Protein - Negative Bedside Urine Urobilinogen - Negative Bedside Urine Nitrite - Negative Bedside Urine Leukocytes - Negative Esterase Point of care testing: Urine Dip Bedside Urine Glucose Negative Bedside Urine Bilirubin - Negative Bedside Urine Ketone - Negative Urine Specific [place] 1.015 Bedside Urine Occult Blood + Bedside Urine pH 6.0 Bedside Urine Protein - Negative Bedside Urine Urobilinogen - Negative Bedside Urine Nitrite - Negative Bedside Urine Leukocytes - Negative Esterase MDM Narrative Medical decision making narrative: [67] year old patient presents with dizziness and darkness to her lateral pugh of vision earlier in the day Multiple etiologies for patient's symptoms considered including, but not limited to: Stroke versus TIA versus orthostasis versus cardiac disease versus peripheral vertigo versus other [] Prior Charts reviewed in our EMR Primary Historian: patient Labs reviewed and interpreted by myself: No leukocytosis or left shift, no anemia, no electrolytes abnormal Imaging reviewed: CT head unremarkable Patient with reassuring history and physical exam, symptoms resolved part way through visit. Multiple diagnoses considered as noted above. There is reported concern from patient about TA, it is noted that she has no objective neurologic symptoms, walk a straight line in his not ataxic, imaging is unremarkable. She had been admitted under similar circumstances a few months ago and had a very thorough workup without acute findings. ABCD2 score is 2. Given lack of symptoms, low risk and recent large workup there is no indication for hospitalization at this time. No evidence of cardiac ischemia on EKGs, troponins negative. Electrolytes unremarkable. Exact etiology unclear, but stroke, myocardial infarction, pulmonary embolism thought to be unlikely. Patient encouraged to follow closely with primary care provider and return for worsening symptoms Patient's symptoms improved over duration of stay with above-stated therapies. Findings and discharge diagnosis discussed with patient/family followed by verbalization of understanding Return precautions discussed with patient/family whom verbalize understanding of diagnosis and plan Discharge Plan Departure Patient Disposition: Home Clinical Impression: Dizziness Instructions: DI for Dizziness-Nonvertigo Activity Restrictions/Additional Instructions: *You have been diagnosed with [dizziness, improved, no signs of stroke, electrolyte abnormality or infectious process] *What to do: *Please continue to take your regular medications as directed. [ ] New medication prescriptions sent to your pharmacy: [ ] [ ] New medication written as a paper prescription [ ] No new medications given *Please follow up with your primary care provider in 2-3 days, call for an appointment. Let them know you were seen in the Emergency Department and that we ask that you be seen in follow up. We will electronically transmit a record of today's note if your PCP is in our system *If you do not have a primary care provider please contact the [facility] Resource line at [phone]. They will ask some questions about your medical history and help get you set up with a doctor in the community. 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 Referrals: Carmen Loyd DO [Primary Care Provider] - Stand Alone Forms: Patient Portal/API
--- NOTE | 2022-11-15 19:18 | DI.CT.S_ITS ---
PROCEDURE: CT HEAD/BRAIN WO CON INDICATIONS: dizziness TECHNIQUE: Noncontrast 4.5 mm thick angled axial sections acquired from the foramen magnum to the vertex, with coronal and sagittal reformats. For radiation dose reduction, the following was used: automated exposure control, adjustment of mA and/or kV according to patient size. COMPARISON: [facility], CT, CT ANGIO HEAD AND NECK, 08/22/2022, 3:27. [facility], MR, MR HEAD/BRAIN WO CON, 08/22/2022, 7:56. FINDINGS: Image quality: Excellent. CSF spaces: Basal cisterns are patent. No extra-axial fluid collections. The ventricles are symmetric in size and shape. Brain: No intracranial bleeds or masses. There is cerebral volume loss for age, with resultant ventricular and sulcal prominence. There are periventricular and deep white matter chronic small vessel ischemic changes. There is intracranial internal carotid artery atherosclerosis. Skull and face: Calvarium and visualized facial bones appear intact, without suspicious lesions. Sinuses: Visualized sinuses and mastoids are clear. IMPRESSION: Noncontrast head CT within normal limits for age. Dictated by: Jeremiah Wilkerson M.D. on 11/15/2022 at 18:47 Approved by: Jeremiah Wilkerson M.D. on 11/15/2022 at 18:47
[2022-11-15 22:01] LABS: Bacteria Urine None Seen; RBC Urine 1-5/HPF (0-5/HPF); Squamous Epithelial Cell Urine 1-5 /HPF (0-5/HPF); WBC Urine None Seen (0-5/HPF)
== END 2022-11-15 22:34 | disposition home or self-care (01) ==
PROVIDERS: Emergency Medicine; Emergency Provider Emergency Medicine; PCP Family Medicine
DX: R42 Dizziness and giddiness (principal); R07.9 Chest pain, unspecified
CPT/HCPCS: 36415; 70450; 71045; 80053; 81003; 81015; 82550; 83690; 83735; 84484; 85025; 85610; 85730; 87086; 93005; 93010; 99284

== ENCOUNTER → 2022-12-12 13:58 | Outpatient (CLI) | payer MEDICARE, OTHER, SELFPAY ==
[2022-11-15 10:50] VITALS: BMI 23.8
== END ==
PROVIDERS: PCP Family Medicine; Visit Provider Physician Assistant
DX: R30.0 Dysuria (principal)
CPT/HCPCS: 87086

== ENCOUNTER 2022-12-12 14:33 | Emergency (ER) | payer MEDICARE, OTHER, SELFPAY ==
[2022-11-15 10:50] VITALS: BMI 23.8
[2022-12-12 14:46] VITALS: BP 134/69; PULSE 84; RESP 16; TEMP 36.9; O2SAT 98; BMI 23.8
[2022-12-12 17:34] LABS: Bacteria Urine Many (>30); Culture Indicated Urine Specimen Cultured; RBC Urine 1-5/HPF (0-5/HPF); Squamous Epithelial Cell Urine 1-5 /HPF (0-5/HPF); WBC Urine >100/HPF (0-5/HPF)
[2022-12-12 17:52] VITALS: BP 125/63; PULSE 78; RESP 17; O2SAT 98
--- NOTE | 2022-12-12 18:25 | ED.FEMALEGU ---
HPI - Female Genitourinary General Chief complaint: Urogenital-Female Stated complaint: sent by [facility] kidney stones Time Seen by Provider: 12/12/22 18:25 Source: patient Mode of arrival: Ambulatory History of Present Illness HPI Narrative: Patient is a 67-year-old female history of lupus not currently on medication presenting today with painful frequent urination and some urinary retention. She reports that last night she felt like she could not void all she was in a bath for about 4 hours this morning she is low voided without any problem. She feels like she may have had symptoms for about a week she took [id number] cranberry juice and some other things no fever or chills no back pain no abdominal pain no nausea or vomiting. Related Data Home Medications Medication Instructions Recorded Confirmed levothyroxine 30 mg PO DAILY 08/22/22 12/12/22 progesterone micronized 200 mg 200 mg PO DAILY 08/22/22 12/12/22 capsule testosterone 50 mg implant pellet mg implant 11/18/22 12/12/22 Previous Rx's Medication Instructions Recorded aspirin 81 mg tablet,delayed 81 mg PO DAILY Daily for TIA 08/22/22 release prevention #60 tabs calcium carbonate 200 mg calcium 1,000 mg (5 x 200 mg calcium (500 08/22/22 (500 mg) chewable tablet mg)) PO Q4HR PRN Dyspepsia #60 tabs levothyroxine 75 mcg tablet 75 mcg PO QACBREAK #30 tabs 08/22/22 (Synthroid) duloxetine 30 mg capsule,delayed 30 mg PO DAILY #90 caps 09/28/22 release (Cymbalta) fluticasone propionate 50 1 spray intranasal DAILY #16 grams 11/18/22 mcg/actuation nasal spray,suspension (Flonase Allergy Relief) cephalexin 500 mg capsule 500 mg PO BID 7 days #14 caps 12/12/22 phenazopyridine 100 mg tablet 100 mg PO TID PRN pain 6 doses #6 12/12/22 (Pyridium) tabs Allergies Allergy/AdvReac Type Severity Reaction Status Date / Time No Known Drug Allergies Allergy Verified 12/12/22 14:52 Review of Systems Review of Systems ROS Unobtainable: All systems reviewed & are unremarkable except as noted in HPI and below Patient History Medical History Hypothyroidism TIA (transient ischemic attack) Fibromyalgia Lupus (systemic lupus erythematosus) Family History Mother No problems noted. Father No problems noted. Substance Use Type: does not use Exam Initial Vital Signs Initial Vital Signs: Vital Signs Temperature 98.5 F 12/12/22 14:46 Pulse Rate 84 12/12/22 14:46 Respiratory Rate 16 12/12/22 14:46 Blood Pressure 134/69 12/12/22 14:46 Pulse Oximetry 98 12/12/22 14:46 Oxygen Delivery Method Room Air 12/12/22 14:46 GENERAL: Alert very pleasant well-appearing 59-year-old female CARDIOVASCULAR: peripheral pulses in tact, cap refill <2 sec RESPIRATORY: No respiratory distress, speaks in full sentences without difficulty ABDOMEN: Soft, nontender, no guarding or rebound : No flank pain EXTREMITIES: Normal range of motion, no clubbing or edema. Neurovascularly intact NEUROLOGICAL: Cranial nerves II through XII grossly intact. Normal gait and speech. SKIN: Warm, dry, no petechiae, no rashes or lesions. Course Orders Ordered: Discontinued Medications Cefazolin Sodium (Cephalexin 250 Mg Cap Prepack) 1 bottle MISC SEEINSTR ONE Stop: 12/12/22 18:29 Last Admin: 12/12/22 18:37 Dose: 1 bottle Documented By: JORDEN Phenazopyridine HCl (Phenazopyridine 100 Mg Tablet) 100 mg PO NOW ONE Stop: 12/12/22 18:29 Last Admin: 12/12/22 18:38 Dose: 100 mg Documented By: JORDEN Vital Signs Vital signs: Vital Signs - 8 hr 12/12/22 14:46 12/12/22 17:52 Temperature 98.5 F Pulse Rate 84 78 Respiratory Rate 16 17 Blood Pressure 134/69 125/63 Pulse Oximetry 98 98 Oxygen Delivery Method Room Air Room Air MDM - Female Genitourinary Lab Data Labs: Lab Results 12/12/22 Range/Units 14:58 Urine RBC 1-5/hpf (0-5/HPF) Urine WBC >100/hpf H (0-5/HPF) Ur Squamous Epith Cells 1-5 /hpf (0-5/HPF) Urine Bacteria Many (>30) H (None) Ur Culture Indicated? Specimen cultured Urine Dip Bedside Urine Glucose Negative Bedside Urine Bilirubin - Negative Bedside Urine Ketone - Negative Urine Specific [place] 1.015 Bedside Urine Occult Blood +++ Bedside Urine pH 6.0 Bedside Urine Protein +/- 15 Bedside Urine Urobilinogen - Negative Bedside Urine Nitrite - Negative Bedside Urine Leukocytes +++ 500 Esterase MDM Narrative Medical decision making narrative: Patient very well-appearing 67-year-old female presents today with UTI like symptoms. Your is positive for bacteria and leukocytes. She is no flank pain or abdominal pain vitals are stable no evidence of sepsis. Will start her on Keflex and Pyridium. Discharge Plan Departure Patient Disposition: Home Clinical Impression: Acute UTI Instructions: DI for Urinary Tract Infection (UTI) Activity Restrictions/Additional Instructions: *You have been diagnosed with UTI *What to do: At this time increase fluids as tolerated you should start feeling better within 24-48 starting antibiotics *Continue to take medications as directed--> SAFEWAY Keflex 500 mg twice a day 7 days Pyridium 100 mg 3 times daily if needed for frequent urination *Follow up with your primary care provider in 2-3 days or call [phone] *Return to ER if you should have increasing pain back pain nausea vomiting fever confused or any new, worsening or concerning symptoms Prescriptions: New phenazopyridine [Pyridium] 100 mg tablet 100 mg PO TID PRN (Reason: pain) Qty: 6 0RF cephalexin 500 mg capsule 500 mg PO BID 7 Days Qty: 14 0RF No Action duloxetine [Cymbalta] 30 mg capsule,delayed release(DR/EC) 30 mg PO DAILY Qty: 90 1RF testosterone 50 mg pellet implant fluticasone propionate [Flonase Allergy Relief] 50 mcg/actuation spray,suspension 1 spray intranasal DAILY Qty: 16 0RF Rx Instructions: administer into each nostril progesterone micronized 200 mg capsule 200 mg PO DAILY Patient Comments: TAKE ONE CAPSULE BY MOUTH NIGHTLY AT BEDTIME levothyroxine 30 mg PO DAILY levothyroxine [Synthroid] 75 mcg Tablet 75 mcg PO QACBREAK Qty: 30 0RF calcium carbonate 200 mg calcium (500 mg) Tablet,Chewable 1,000 mg PO Q4HR PRN (Reason: Dyspepsia) Qty: 60 0RF aspirin 81 mg tablet,delayed release (DR/EC) 81 mg PO DAILY Qty: 60 0RF Rx Instructions: For 5 day take 2 tablets daily then continue with 1 tablet daily lifelong. Referrals: Carmen Loyd DO [Primary Care Provider] - Stand Alone Forms: Patient Portal/API
[2022-12-12] MEDS: cephALEXin 250 MG CAP PREPACK 1 BOTTLE MISC (18:37)
[2022-12-12] MEDS: PHENAZOPYRIDINE 100 MG TABLET PO (18:38)
== END 2022-12-12 18:40 | disposition home or self-care (01) ==
PROVIDERS: Emergency Medicine; Emergency Provider Emergency Medicine; PCP Family Medicine
DX: N39.0 Urinary tract infection, site not specified (principal); R30.0 Dysuria
CPT/HCPCS: 36415; 81003; 81015; 87077; 87086; 87186; 99283

== ENCOUNTER → 2022-12-24 14:43 | Outpatient (CLI) | payer MEDICARE, OTHER, SELFPAY ==
[2022-11-15 10:50] VITALS: BMI 23.8
[2022-12-24 15:17] LABS: Appearance Urine UA CLEAR; Bilirubin Urine UA NEGATIVE (NEGATIVE); Color Urine UA YELLOW; Glucose Urine UA NEGATIVE (Negative); Ketones Urine UA NEGATIVE (NEGATIVE); Leukocyte Esterase Urine UA TRACE (NEGATIVE); Nitrite Urine UA NEGATIVE (Negative); Occult Blood Urine UA 1+ (Negative); Protein Urine UA NEGATIVE (Negative); Urobilinogen Urine UA 0.2 E.U./dL (0.2)
[2022-12-24 15:32] LABS: pH Urine UA 5.5 (4.5-8.0)
[2022-12-24 15:43] LABS: Bacteria Urine None Seen; Culture Indicated Urine Specimen Cultured; RBC Urine None Seen (0-5/HPF); Squamous Epithelial Cell Urine 1-5 /HPF (0-5/HPF); WBC Urine 1-5/HPF (0-5/HPF)
== END ==
PROVIDERS: PCP Family Medicine; Referring Provider Family Medicine; Visit Provider Family Medicine
DX: N39.0 Urinary tract infection, site not specified (principal)
CPT/HCPCS: 81001; 87086

== ENCOUNTER → 2023-02-04 11:45 | Outpatient (CLI) | payer MEDICARE, OTHER, SELFPAY ==
[2022-11-15 10:50] VITALS: BMI 23.8
[2023-02-04 13:30] LABS: Appearance Urine UA CLEAR; Bilirubin Urine UA NEGATIVE (NEGATIVE); Color Urine UA YELLOW; Glucose Urine UA NEGATIVE (Negative); Ketones Urine UA NEGATIVE (NEGATIVE); Leukocyte Esterase Urine UA NEGATIVE (NEGATIVE); Nitrite Urine UA NEGATIVE (Negative); Occult Blood Urine UA TRACE-INTACT (Negative); Protein Urine UA NEGATIVE (Negative); Specific Gravity Urine UA <=1.005 (1.000-1.035); Urobilinogen Urine UA 0.2 E.U./dL (0.2)
[2023-02-04 13:33] LABS: pH Urine UA 5.5 (4.5-8.0)
[2023-02-04 13:36] LABS: Bacteria Urine None Seen; Culture Indicated Urine Cult Not Indicated; RBC Urine None Seen (0-5/HPF); Squamous Epithelial Cell Urine 0-1 /HPF (0-5/HPF); WBC Urine None Seen (0-5/HPF)
== END ==
PROVIDERS: PCP Family Medicine; Referring Provider Family Medicine; Visit Provider Family Medicine
DX: R35.0 Frequency of micturition (principal); R30.9 Painful micturition, unspecified
CPT/HCPCS: 81001

== ENCOUNTER → 2023-06-27 15:49 | Outpatient (CLI) | payer MEDICARE, OTHER, SELFPAY ==
[2022-11-15 10:50] VITALS: BMI 23.8
--- NOTE | 2023-06-27 15:51 | DI.RAD.S_ITS ---
PROCEDURE: XR CERVICAL SPINE 2V OR 3V INDICATIONS: worsening neck pain and crepitus w rotation TECHNIQUE: 3 view(s) of the cervical spine were acquired. COMPARISON: None. FINDINGS: Bones: Straightening of the cervical spine. Mild anterolisthesis of C4 on C5 and C5 on C6, and C7 on T1. Vertebral body heights of the cervical spine are well-maintained. Multilevel, moderate degenerative disc disease cervical spine. Moderate bilateral cervical facet arthropathy. Somewhat limited evaluation of the left lateral mass of C1 to given overlying dental anglican. Soft tissues: No prevertebral soft tissue swelling. IMPRESSION: Degenerative changes as described above. Dictated by: Seema Gil M.D. on 06/27/2023 at 18:15 Approved by: Seema Gil M.D. on 06/27/2023 at 18:18
== END ==
PROVIDERS: PCP Family Medicine; Referring Provider Family Medicine; Visit Provider Family Medicine
DX: M47.812 Spondylosis without myelopathy or radiculopathy, cervical region (principal); M43.12 Spondylolisthesis, cervical region; M50.30 Other cervical disc degeneration, unspecified cervical region; E03.9 Hypothyroidism, unspecified; R53.83 Other fatigue
CPT/HCPCS: 72040

== ENCOUNTER → 2023-06-30 10:55 | Outpatient (CLI) | payer MEDICARE, OTHER, SELFPAY ==
[2022-11-15 10:50] VITALS: BMI 23.8
[2023-06-30 12:34] LABS: Free T3, Triiodothyronine Free 3.33 pg/mL (2.77-5.27); Free T4, Direct Thyroxine 1.15 ng/dL (0.78-2.19)
[2023-06-30 12:47] LABS: Thyroid Stimulating Hormone 0.348 uIU/mL (0.47-4.68)
== END ==
LOC: LAB 10:56
PROVIDERS: PCP Family Medicine; Referring Provider Family Medicine; Visit Provider Family Medicine
DX: R53.83 Other fatigue (principal); E03.9 Hypothyroidism, unspecified; M54.2 Cervicalgia
CPT/HCPCS: 36415; 84439; 84443; 84481; 84482

== ENCOUNTER → 2023-11-28 09:30 | Outpatient (CLI) | payer MEDICARE, OTHER, SELFPAY ==
[2022-11-15 10:50] VITALS: BMI 23.8
[2023-11-28 10:32] LABS: Add Manual Diff / Slide Review NO; Basophils Absolute Auto 0 /uL (0-100); Basophils Percent Auto 0.5 % (0-2); Eosinophils Absolute Auto 100 /uL (0-450); Eosinophils Percent Auto 1.9 % (2-4); Hematocrit 39.4 % (36-46); Hemoglobin 13.3 g/dL (12.0-16.0); Lymphocytes Absolute Auto 2000 /uL (1100-4500); Lymphocytes Percent Auto 29.1 % (25-40); Mean Corpuscular HGB Conc 33.8 % (30-36); Mean Corpuscular Hemoglobin 31.3 PG (26-34); Mean Corpuscular Volume 92.4 fL (80-100); Monocytes Absolute Auto 400 /uL (0-900); Monocytes Percent Auto 6.5 % (3-14); Neutrophils Absolute Auto 4200 /uL (1500-7000); Platelet Count 363 X10^3/uL (150-400); Red Blood Cell Count 4.27 X10^6/uL (4.0-5.2); Red Cell Distribution Width 13.6 % (11.6-14.8); White Blood Cell Count 6.8 X10^3/uL (4.5-11.0)
[2023-11-28 10:48] LABS: Hemoglobin A1C% w Est Avg Glu 5.4 % (4.0-6.0)
[2023-11-28 10:57] LABS: Alanine Aminotransferase 18 IU/L (<35); Albumin 4.1 g/dL (3.5-5.0); Albumin Globulin Ratio 1.5 (1.0-2.8); Alkaline Phosphatase 69 U/L (38-126); Aspartate Aminotransferase 27 IU/L (14-36); BUN Creatinine Ratio 15.2 (6-22); Bilirubin Total 0.5 mg/dL (0.2-1.3); Blood Urea Nitrogen 14 mg/dL (7-17); Calcium 9.9 mg/dL (8.4-10.2); Carbon Dioxide 30 mmol/L (22-32); Chloride 103 mmol/L (98-107); Estimated Glomerular Filt Rate > 60 mL/min (>60); Globulin 2.8 g/dL (1.7-4.1); Glucose 101 mg/dL (80-110); HEMOLYSIS < 15 (0-50); Potassium 4.3 mmol/L (3.4-5.1); Sodium 138 mmol/L (137-145); Total Protein 6.9 g/dL (6.3-8.2)
[2023-11-28 11:10] LABS: Free T3, Triiodothyronine Free 5.45 pg/mL (2.77-5.27)
[2023-11-28 11:23] LABS: TSH w/ Reflex to FT4 2.27 uIU/mL (0.47-4.68)
== END ==
PROVIDERS: PCP Family Medicine; Referring Provider Family Medicine; Visit Provider Family Medicine
DX: R42 Dizziness and giddiness (principal); R73.03 Prediabetes; E03.9 Hypothyroidism, unspecified
CPT/HCPCS: 36415; 80053; 83036; 84443; 84481; 85025

== ENCOUNTER → 2024-09-24 11:31 | Outpatient (CLI) | payer MEDICARE, OTHER, SELFPAY ==
[2022-11-15 10:50] VITALS: BMI 23.8
[2024-09-24 13:14] LABS: Free T3, Triiodothyronine Free 4.73 pg/mL (2.77-5.27); Free T4, Direct Thyroxine 1.42 ng/dL (0.78-2.19)
[2024-09-24 13:27] LABS: Thyroid Stimulating Hormone 0.554 uIU/mL (0.47-4.68)
== END ==
PROVIDERS: PCP Family Medicine; Referring Provider Family Medicine; Visit Provider Family Medicine
DX: E03.9 Hypothyroidism, unspecified (principal)
CPT/HCPCS: 36415; 84439; 84443; 84481

== ENCOUNTER → 2025-01-16 16:57 | Outpatient (CLI) | payer MEDICARE, OTHER, SELFPAY ==
[2022-11-15 10:50] VITALS: BMI 23.8
[2025-01-16 18:58] LABS: Appearance Urine UA CLEAR; Bilirubin Urine UA NEGATIVE (NEGATIVE); Color Urine UA GREEN; Glucose Urine UA NEGATIVE (Negative); Ketones Urine UA TRACE (NEGATIVE); Leukocyte Esterase Urine UA TRACE (NEGATIVE); Nitrite Urine UA NEGATIVE (Negative); Occult Blood Urine UA TRACE-INTACT (Negative); Protein Urine UA NEGATIVE (Negative); Specific Gravity Urine UA 1.020 (1.000-1.035); Urobilinogen Urine UA 1.0 E.U./dL (0.2)
[2025-01-16 18:59] LABS: pH Urine UA 7.0 (4.5-8.0)
[2025-01-16 19:10] LABS: Culture Indicated Urine Cult Not Indicated
== END ==
PROVIDERS: Family Medicine; PCP Family Medicine; Referring Provider Family Medicine; Visit Provider Family Medicine
DX: R30.0 Dysuria (principal)
CPT/HCPCS: 81001

== ENCOUNTER → 2025-01-18 06:16 | Outpatient (CLI) | payer MEDICARE, OTHER, SELFPAY ==
[2022-11-15 10:50] VITALS: BMI 23.8
--- NOTE | 2025-01-18 06:18 | DI.US.S_ITS ---
PROCEDURE: US PELVIC COMPLETE INDICATIONS: CRAMPING TECHNIQUE: Real-time scanning was performed of the pelvic organs, with image documentation. Additional endovaginal scanning was necessary due to incomplete visualization of the adnexal and endometrial structures by transabdominal scanning. COMPARISON: [facility], , US PELVIC COMPLETE, 07/13/2022, 13:14. FINDINGS: Uterus: Uterus is anteverted and normal in size at 4.6 x 2.1 x 3.4 cm. The myometrium is homogeneous. The endometrium measures 1.8 mm combined thickness. Ovaries: Not visualized. Other: No pathologic free abdominal or pelvic fluid. IMPRESSION: Unremarkable exam within visualized portions. Ovaries are not visualized. We strive to produce accurate, complete, and clear reports of imaging services. To assist us in improving patient care, this report was composed using standard report templates and voice recognition software. Therefore, it may contain abnormal punctuation, insertions and/or omissions. Occasional wrong-word or sound-alike substitutions may occur. Though we review the report and make efforts to correct it, we do recommend that the report be read carefully in proper context to recognize any text inaccuracies. Dictated by: Parul Sharma M.D. on 01/18/2025 at 16:38 Approved by: Parul Sharma M.D. on 01/18/2025 at 16:39
== END ==
LOC: US 06:17
PROVIDERS: PCP Family Medicine; Referring Provider Family Medicine; Visit Provider Family Medicine
DX: R10.20 Pelvic and perineal pain unspecified side (principal)
CPT/HCPCS: 76830; 76856